=== PATIENT | male | born 1960 | race Caucasian/White ===

== ENCOUNTER 2018-04-01 10:45 | Emergency (ER) | payer BC ==
--- NOTE | 2018-04-01 10:51 | EDM.PDOC ---
ED HPI GENERAL MEDICAL PROBLEM - General Chief Complaint: Abdominal Pain Stated Complaint: Abdominal Pain Time Seen by Provider: 04/01/18 10:45 Source of Information: Reports: Patient, Family (), Old Records ([facility] chart/EMR) History Limitations: Reports: No Limitations - History of Present Illness INITIAL COMMENTS - FREE TEXT/NARRATIVE: The patient drove himself to the emergency room via private automobile for evaluation of a three-week history of progressive intermittent pain in the epigastric region with radiation into the intrascapular region. He has been compliant with his Prilosec with increased Tums use during the last couple of weeks, although this has not been helping in the last few days. He has noticed some increased symptoms after eating peanuts, however no previous history of diverticulosis. He rates his discomfort at 7/10 currently with previous maximum discomfort as 9/10. The patient denies any chest pain/pressure, heart flutter, dizziness, orthostasis, orthopnea, diaphoresis, paresthesias, recent decreased exercise tolerance, or any other anginal-type symptoms. No recent history of other abdominal pain, diarrhea, melena, gross hematochezia, or any food intolerance, including fatty foods, etc., although occasional nausea. He generally has 2 normal bowel movements per day with last bowel movement earlier this morning. He denies any colic, gross hematuria, or other UTI symptoms. His stools have been somewhat whitish lately. The patient also denies any recent fever, cough, wheezing, dyspnea, etc.. Note that the patient does take 600 mg of ibuprofen at bedtime every evening secondary to nonspecific muscle aches. Onset: Gradual Duration: Week(s): (As above), Intermittent Location: Reports: Abdomen, Back (As above), Radiates to (Intrascapular as above ). Denies: Head, Face, Neck, Chest, Upper Extremity, Left, Upper Extremity, Right Quality: Reports: Ache, Same as Previous Episode Improves with: Reports: None Worsens with: Reports: None Context: Reports: Other (As above) Associated Symptoms: Reports: Nausea/Vomiting (No emesis). 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) Upper Abdomen Pain Score (Numeric/FACES): 7 - Related Data Allergies Allergy/AdvReac Type Severity Reaction Status Date / Time No Known Allergies Allergy Verified 10/25/15 10:10 Home Meds: Home Meds Omeprazole Magnesium [Prilosec Otc] 20 mg PO DAILY 10/26/13 [History] Valsartan [Diovan] 160 mg PO DAILY 10/26/13 [History] atorvaSTATin Calcium [Atorvastatin Calcium] 10 mg PO DAILY 10/26/13 [History] Ascorbate Calcium [Vitamin C] 500 mg PO DAILY 04/01/18 [History] Cholecalciferol (Vitamin D3) [Vitamin D3] 1,000 unit PO DAILY 04/01/18 [History] Fish Oil/[place]-3 Fatty Acids [Fish Oil] 1 cap PO DAILY 04/01/18 [History] Melatonin 5 mg PO BEDTIME 04/01/18 [History] Multivitamin [Men's Multi-Vitamin] 1 tab PO DAILY 04/01/18 [History] Mv-Mn/Lutein/Zeax/Bilber/Hb277 [Macular Health Formula Capsule] 1 each PO DAILY 04/01/18 [History] Past Medical History HEENT History: Reports: Hard of Hearing, Macular Degeneration, Other (See Below) . Denies: Allergic Rhinitis, Cataract, Glaucoma, Impaired Vision, Retinal Detachment Other HEENT History: Possible beginning macular degeneration of the right eye. He does not wear glasses. Mild bilateral presbycusis with no hearing aide therapy. Cardiovascular History: Reports: High Cholesterol, Hypertension, Other (See Below). Denies: Afib, Aneurysm, Arrhythmia, Blood Clots/VTE/DVT, CAD, Heart Failure, Heart Murmur, SC, Syncope Other Cardiovascular History: Dyslipidemia. Respiratory History: Reports: None. Denies: Asthma, Bronchitis, Recurrent, COPD , Intubation, Previous, PE, Pneumonia, Recurrent, Pneumothorax, Sleep Apnea, TB Gastrointestinal History: Reports: Cholelithiasis, Colon Polyp, GERD, Other ( See Below). Denies: Celiac Disease, Chronic Constipation, Chronic Diarrhea, Gastritis, GI Bleed, Hepatitis, Helicobacter Pylori, Hiatal Hernia, Inflammatory Bowel Disease, Irritable Bowel Syndrome, Jaundice, Pancreatitis Other Gastrointestinal History: History of recurrent multiple colonic polyps in the sigmoid region including multiple hyperplastic colonic polyps and tubular adenomas with initial diagnosis on 10/31/13. Patient did have a recurrence of his tubular adenoma at 40 cm at time of colonoscopy on 10/25/15 with additional hyperplastic polyps at that time. Gangrenous cholelithiasis cholecystitis requiring surgery as below. Genitourinary History: Reports: None. Denies: Acute Renal Failure, Chronic Renal Insuffiency, Renal Calculus, Retention, Urinary, STD, Urinary Incontinence , UTI, Recurrent Musculoskeletal History: Reports: Arthritis, Osteoarthritis, Other (See Below). Denies: Back Pain, Chronic, Fracture, Gout, Neck Pain, Chronic, RA, SLE Other Musculoskeletal History: Nonspecific myalgias secondary to labor and physical activity Neurological History: Reports: None. Denies: Cerebral Aneurysms, Concussion, CVA, Headaches, Chronic, Head Trauma, Migraines, MS, Neuropathy, Peripheral, Parkinson's, Seizure, TIA Psychiatric History: Reports: None. Denies: Abuse, Victim of, ADD, ADHD, Addiction, Anxiety, Depression, Psych Hospitalization(s), PTSD, Suicide Attempt , Suicidal Ideation Endocrine/Metabolic History: Reports: None. Denies: Diabetes, Type I, Diabetes , Type II, Diabetes Mellitus, Type 3c, Hypothyroidism, IDDM Hematologic History: Reports: None. Denies: Anemia, Blood Transfusion(s), Iron Deficiency Immunologic History: Reports: None. Denies: AIDS, HIV, SLE Oncologic (Cancer) History: Reports: None. Denies: Colon, Hodgkin's Lymphoma, Leukemia, Lymphoma, Malignant Melanoma, Non-Hodgkin's Lymphoma, Squamous Cell Carcinoma Dermatologic History: Reports: None. Denies: Eczema, Psoriasis - Infectious Disease History Infectious Disease History: Reports: Chicken Pox. Denies: C-Difficile, Helicobacter Pylori, Measles, Meningitis, Mononucleosis, MRSA, Mumps, Pertussis (Whooping Cough), Rheumatic Fever, Rubella, Scarlet Fever, Shingles, TB, VRE - Past Surgical History Head Surgeries/Procedures: Reports: None HEENT Surgical History: Reports: Oral Surgery, Other (See Below). Denies: Adenoidectomy, Cataract Surgery, Eye Surgery, Laser Surgery, LASIK, Naso-Sinus Surgery, Tonsillectomy Other HEENT Surgeries/Procedures: Jeffrey teeth extraction 4 at age 22. Cardiovascular Surgical History: Reports: None. Denies: Varicose Respiratory Surgical History: Reports: None. Denies: Lung Biopsies, Thoracentesis GI Surgical History: Reports: Cholecystectomy, Colonoscopy, EGD, Polypectomy, Other (See Below). Denies: Appendectomy, Hernia, Abdominal, Hernia, Inguinal, Hernia Repair/Other Other GI Surgeries/Procedures: Laparoscopic cholecystectomy on 03/02/08. Excision of multiple hyperplastic colonic polyps and tubular adenomas as above with EGD and colonoscopy performed on 10/31/13 with last colonoscopy on 10/25/15. Male Surgical History: Reports: Circumcision, Other (See Below). Denies: TURP-Transurethral Resection of Prostate, Vasectomy Other Male Surgeries/Procedures: Vasectomy at age 34. Circumcision as an infant. Endocrine Surgical History: Reports: None. Denies: Thyroid Biopsy Neurological Surgical History: Reports: None. Denies: C-Spine, Discectomy, Laminectomy, Lumbar Spine, Sacral Spine, Spinal Fusion, Vertebroplasty Musculoskeletal Surgical History: Reports: None. Denies: Arthroscopic Procedure , Carpal Tunnel, Ganglion Cyst, Joint Replacement, ORIF, Shoulder Surgery Oncologic Surgical History: Reports: None Dermatological Surgical History: Reports: None - Past Imaging History Past Imaging History: Reports: Ultrasound (Testicular ultrasound on 05/30/11. Right upper quadrant ultrasound on 03/01/08. Abdominal ultrasound on 02/28/08.) Social & Family History - Family History HEENT: Reports: None. Denies: Glaucoma, Macular Degeneration, Retinal Detachment Cardiac: Reports: Afib, Arrhythmia, CAD, Hypertension, SC, Pacemaker, Other ( See Below). Denies: Aneurysm, Blood Clots/VTE/DVT, Bypass, Heart Failure, Heart Murmur, High Cholesterol, Syncope Other Cardiac Family History: Father with history of atrial fibrillation and arrhythmia requiring pacemaker placement. Father with hypertension. Father with history of DVT of the legs. Respiratory: Reports: None. Denies: Asthma, COPD, PE, Pneumothorax, Sleep Apnea GI: Reports: Colon Polyps, PUD, Other (See Below). Denies: Celiac Disease, Cholelithiasis, GERD, GI bleed, Inflammatory Bowel Disease, Irritable Bowel Syndrome Other GI Family History: Paternal grandfather with colon cancer as below. Sister with unknown type of colonic polyps. Father with peptic ulcer disease. : Reports: Dialysis, Renal Disease/Insufficiency, Other (See Below). Denies: Renal Calculus Other Family History: Paternal grandmother with diabetic nephropathy requiring dialysis. OBGYN: Reports: None. Denies: Endometriosis, Recurrent Spontaneous Musculoskeletal: Reports: None. Denies: Gout, RA, SLE Neurological: Reports: None. Denies: Alzheimers Disease, Cerebral Aneurysms, CVA, Dementia, Migraines, MS, Neuropathy, Diabetic, Neuropathy, Peripheral, Parkinson's, Seizure, TIA Psychiatric: Reports: None. Denies: Abuse, Victim of, ADD, ADHD, Anxiety, Depression, Psych Hospitalization(s), PTSD, Suicide Attempt Endocrine/Metabolic: Reports: Diabetes, type II, Other (See Below). Denies: Diabetes, Type I, Hypothyroidism, IDDM Other Endocrine/Metabolic Family History: Paternal grandmother with AODM Hematologic: Reports: None. Denies: Anemia, SLE Immunologic: Reports: None. Denies: AIDS, HIV, SLE Dermatologic: Reports: None. Denies: Eczema, Psoriasis Oncologic: Reports: Colon, Other (See Below). Denies: Hodgkin's Lymphoma, Leukemia, Non-Hodgkin's Lymphoma, Prostate, Skin Other Oncologic Family History: Paternal grandfather with fatal colon cancer at age 60. - Tobacco Use Smoking Status *Q: Current Every Day Smoker Tobacco Use Within Last Twelve Months: Cigarettes Years of Tobacco use: 38 Packs/Tins Daily: 1.5 Packs/Tins Daily Comment: Started smoking at age 19 with maximum use of 2.5 packs per day. Used Tobacco, but Quit: No Smoking Cessation Information Provided To Patient: Yes Second Hand Smoke Exposure: No Second Hand Smoke Education Provided: No - Caffeine Use Caffeine Use: Reports: Soda (3 sodas per day). Denies: Coffee, Energy Drinks, Tea - Alcohol Use Alcohol Use History: Yes Days Per Week of Alcohol Use: 0 Number of Drinks Per Day: 3 Number of Drinks Per Day Comment: Usually 3 drinks every couple of weeks. No previous DWIs, problems with alcohol abuse, etc. Total Drinks Per Week: 0 Alcohol Use in Last Twelve Months: Yes Alcohol Use Frequency: Socially - Recreational Drug Use Recreational Drug Use: No Drug Use in Last 12 Months: No Recreational Drug Type: Denies: Amphetamines (Speed), Cocaine, Heroin, Inhalants (Glues, Solvents, Aerosols), LSD (Acid), Marijuana/Hashish, Methamphetamine, Methaqualone, Morphine, Oxycodone - Living Situation & Occupation Living situation: Reports: (2014), (2010 with 2 children from that relationship), with Family () Occupation: Employed ([employer]) ED ROS GENERAL - Review of Systems Review Of Systems: ROS reveals no pertinent complaints other than HPI. ED EXAM, GENERAL - Physical Exam Exam: See Below Exam Limited By: No Limitations General Appearance: Alert, WD/WN, No Apparent Distress Eye Exam: Bilateral Eye: EOMI, Normal Inspection (No nystagmus), PERRL Ears: Normal External Exam, Normal Canal, Normal TMs, Hearing Loss (Bilateral presbycusismild) Nose: Normal Inspection, Normal Mucosa, No Blood Throat/Mouth: Normal Inspection, Normal Lips, Normal Teeth, Normal Gums, Normal Oropharynx, Normal Voice, No Airway Compromise. No: Dysphagia, Perioral Cyanosis Head: Atraumatic, Normocephalic. No: Facial Swelling, Facial Tenderness, Sinus Tenderness Neck: Normal Inspection, Supple, Non-Tender, Full Range of Motion. No: Carotid Bruit, Lymphadenopathy (L), Lymphadenopathy (R), Thyromegaly Respiratory/Chest: No Respiratory Distress, Lungs Clear, Normal Breath Sounds, No Accessory Muscle Use, Chest Non-Tender. No: Rhonchi, Wheezing, Pleural Rub, Retractions Cardiovascular: Normal Peripheral Pulses, Regular Rate, Rhythm, No Edema, No Gallop, No JVD, No Murmur, No Rub. No: Gallop/S3, Gallop/S4, Friction Rub Peripheral Pulses: 2+: Radial (L), Radial (R), Dorsalis Pedis (L), Dorsalis Pedis (R) GI/Abdominal: Normal Bowel Sounds, No Organomegaly, No Distention, No Abnormal Bruit, No Mass, Pelvis Stable, Tender (Mild Palpation pain in the epigastric region). No: Guarding, Rigid, Rebound (Male) Exam: Deferred Rectal (Males) Exam: Deferred Back Exam: Normal Inspection, Full Range of Motion. No: CVA Tenderness (L), CVA Tenderness (R), Muscle Spasm Extremities: Normal Inspection, Normal Range of Motion, Non-Tender, No Pedal Edema, Normal Capillary Refill. No: Tahir's Sign Neurological: Alert, Oriented, CN II-XII Intact, Normal Cognition, Normal Gait, Normal Reflexes (Negative Babinski's), No Motor/Sensory Deficits Psychiatric: Normal Affect, Normal Mood Skin Exam: Warm, Dry, Intact, Normal Color, No Rash. No: Diaphoretic, Ecchymosis, Jaundice, Pallor, Petechiae, Wound/Incision Lymphatic: No Adenopathy EKG INTERPRETATION EKG Date: 04/01/18 Time: 10:56 Rhythm: NSR Rate (Beats/Min): 69 Ola: Normal (Left cardiac axis) P-Wave: Present (Mild diffuse biphasic P waves with poor R-wave progression in the anterior leads) QRS: Normal (QRS interval of 0.09 seconds representing repolarization changes with T-wave inversion in leads 3 and V1) ST-T: Normal QT: Normal IA/PQ Interval: 0.17 seconds Comparison: No Change (Since last EKG on 11/21/09) EKG Interpretation Comments: 1. No acute ischemic changes 2. Left Atrial enlargement 3. Repolarization changes Course - Vital Signs Last Recorded V/S: Last Vital Signs Temp 37.0 C 04/01/18 10:45 Pulse 59 L 04/01/18 13:20 Resp 17 04/01/18 13:20 BP 122/81 04/01/18 13:20 Pulse Ox 94 L 04/01/18 13:00 Vital Signs - 24 hr 04/01/18 04/01/18 04/01/18 10:45 11:00 11:20 Temperature [ 37.0 C Temporal] Pulse, 73 67 65 Peripheral [ Pulse Oximetry] Respiratory 19 19 16 Rate Blood Pressure 136/83 122/81 138/89 [Right Upper Arm] O2 Sat by Pulse 98 98 96 Oximetry 04/01/18 04/01/18 04/01/18 11:30 11:45 12:30 Temperature [ Temporal] Pulse, 62 66 58 L Peripheral [ Pulse Oximetry] Respiratory 20 18 17 Rate Blood Pressure 103/70 123/79 129/82 [Right Upper Arm] O2 Sat by Pulse 97 99 98 Oximetry 04/01/18 04/01/18 04/01/18 12:45 13:00 13:20 Temperature [ Temporal] Pulse, 59 L 58 L 59 L Peripheral [ Pulse Oximetry] Respiratory 19 16 17 Rate Blood Pressure 120/79 132/81 122/81 [Right Upper Arm] O2 Sat by Pulse 93 L 94 L Oximetry - Orders/Labs/Meds Orders: Active Orders 24 hr Category Date Time Status Cardiac Monitoring [RC] . DIRECTED Care 04/01/18 10:52 Active Communication Order [RC] ROUTINE Care 04/01/18 13:27 Active EKG Documentation Completion [RC] ASDIRECTED Care 04/01/18 10:52 Active Oxygen Therapy, ED [RC] PRN Care 04/01/18 10:52 Active Peripheral IV Care [RC] . DIRECTED Care 04/01/18 10:52 Active Pulse Oximetry [RC] CONTINUOUS Care 04/01/18 10:52 Active Up With Assistance [RC] PFP Care 04/01/18 10:52 Active Vital Signs [RC] PFP Care 04/01/18 10:52 Active Nothing per Oral Now Diet [DIET] Diet 04/01/18 Breakfast Active Abdomen Pelvis w Cont [CT] Stat Exams 04/01/18 11:37 Taken Abdomen Series w Chest 1V [CR] Routine Exams 04/01/18 10:54 Taken CULTURE URINE [RM] Routine Lab 04/01/18 12:05 Received URINALYSIS W/MICROSCOPIC [UA W/MICROSCOPIC] [URIN] Lab 04/01/18 12:05 Ordered Routine Sodium Chloride 0.9% [Saline Flush] Med 04/01/18 10:52 Active 10 ml FLUSH ASDIRECTED PRN Obtain Past Medical Record [OM.PC] Urgent Oth 04/01/18 10:52 Active Peripheral IV Insertion Adult [OM.PC] Stat Oth 04/01/18 10:52 Ordered Resuscitation Status Stat Resus Stat 04/01/18 10:52 Ordered Medication Orders Sodium Chloride (Saline Flush) 10 ml FLUSH ASDIRECTED PRN PRN Reason: Keep Vein Open Last Admin: 04/01/18 11:40 Dose: 10 ml Labs: Laboratory Tests 04/01/18 04/01/18 04/01/18 Range/Units 10:55 10:55 10:55 WBC 11.3 H (4.0-10.2) K/uL RBC 5.29 (4.33-5.41) M/uL Hgb 16.9 H (13.1-16.8) g/dL Hct 48.9 (39.0-49.0) % MCV 92.4 (84.0-98.0) fL MCH 31.9 (28.2-33.3) pg MCHC 34.6 (31.7-36.0) g/dL RDW 13.7 (11.2-14.1) % Plt Count 198 (150-350) K/uL Neut % (Auto) 67.2 (45.0-80.0) % Lymph % (Auto) 22.2 (10.0-50.0) % [place] % (Auto) 8.6 (2.0-14.0) % Eos % (Auto) 1.6 (0.0-5.0) % Baso % (Auto) 0.4 (0.0-2.0) % Neut # (Auto) 7.62 H (1.40-7.00) K/uL Lymph # (Auto) 2.51 (0.50-3.50) K/uL [place] # (Auto) 0.98 (0.00-1.00) K/uL Eos # (Auto) 0.18 (0.00-0.50) K/uL Baso # (Auto) 0.04 (0.00-0.20) K/uL PT 10.3 (9.8-11.7) SEC INR 1.0 APTT 31.2 H (22.1-29.8) SEC D-Dimer, Quantitative 319 (0-400) ng/mL Sodium (136-145) mmol/L Potassium (3.5-5.1) mmol/L Chloride (98-107) mmol/L Carbon Dioxide (21.0-32.0) mmol/L BUN (7-18) mg/dL Creatinine (0.51-1.17) mg/dL Est Cr Clr Drug Dosing mL/min Estimated GFR (MDRD) mL/min Glucose (74-106) mg/dL Lactic Acid (0.4-2.0) mmol/L Uric Acid (2.6-7.2) mg/dL Calcium (8.5-10.1) mg/dL Magnesium (1.8-2.4) mg/dL Total Bilirubin (0.2-1.0) mg/dL AST (15-37) U/L ALT (12-78) U/L Alkaline Phosphatase (46-116) IU/L Creatine Kinase (26-308) U/L Creatine Kinase Index (0.0-2.5) % CK-MB (CK-2) (0.00-3.60) ng/mL Troponin I (0.000-0.056) ng/mL NT-Pro-B Natriuret Pep (0-125) pg/mL Total Protein (6.4-8.2) g/dL Albumin (3.4-5.0) g/dL Amylase (25-115) U/L Lipase (73-393) U/L TSH, Ultra Sensitive (0.358-3.740) mIU/mL Specimen Type Urine Color Urine Appearance Urine pH (5.0-9.0) Ur Specific Glen (1.005-1.030) Urine Protein (NEGATIVE) mg/dL Urine Glucose (UA) (NEGATIVE) mg/dL Urine Ketones (NEGATIVE) mg/dL Urine Occult Blood (NEGATIVE) Urine Nitrite (NEGATIVE) Urine Bilirubin (NEGATIVE) Urine Urobilinogen (0.2-1.0) E.U./dL Ur Leukocyte Esterase (NEGATIVE) Urine RBC /HPF Urine WBC /HPF Ur Epithelial Cells /LPF Urine Bacteria (NONE TO FEW) /HPF 04/01/18 04/01/18 04/01/18 Range/Units 10:55 10:55 12:05 WBC (4.0-10.2) K/uL RBC (4.33-5.41) M/uL Hgb (13.1-16.8) g/dL Hct (39.0-49.0) % MCV (84.0-98.0) fL MCH (28.2-33.3) pg MCHC (31.7-36.0) g/dL RDW (11.2-14.1) % Plt Count (150-350) K/uL Neut % (Auto) (45.0-80.0) % Lymph % (Auto) (10.0-50.0) % [place] % (Auto) (2.0-14.0) % Eos % (Auto) (0.0-5.0) % Baso % (Auto) (0.0-2.0) % Neut # (Auto) (1.40-7.00) K/uL Lymph # (Auto) (0.50-3.50) K/uL [place] # (Auto) (0.00-1.00) K/uL Eos # (Auto) (0.00-0.50) K/uL Baso # (Auto) (0.00-0.20) K/uL PT (9.8-11.7) SEC INR APTT (22.1-29.8) SEC D-Dimer, Quantitative (0-400) ng/mL Sodium 138 (136-145) mmol/L Potassium 4.2 (3.5-5.1) mmol/L Chloride 106 (98-107) mmol/L Carbon Dioxide 21.9 (21.0-32.0) mmol/L BUN 13 (7-18) mg/dL Creatinine 0.92 (0.51-1.17) mg/dL Est Cr Clr Drug Dosing 96.06 mL/min Estimated GFR (MDRD) > 60 mL/min Glucose 97 (74-106) mg/dL Lactic Acid 0.6 (0.4-2.0) mmol/L Uric Acid 4.6 (2.6-7.2) mg/dL Calcium 8.9 (8.5-10.1) mg/dL Magnesium 1.9 (1.8-2.4) mg/dL Total Bilirubin 1.1 H (0.2-1.0) mg/dL AST 210 H (15-37) U/L ALT 398 H (12-78) U/L Alkaline Phosphatase 382 H (46-116) IU/L Creatine Kinase 327 H (26-308) U/L Creatine Kinase Index 1.3 (0.0-2.5) % CK-MB (CK-2) 4.30 H (0.00-3.60) ng/mL Troponin I 0.000 (0.000-0.056) ng/mL NT-Pro-B Natriuret Pep 20 (0-125) pg/mL Total Protein 7.7 (6.4-8.2) g/dL Albumin 3.6 (3.4-5.0) g/dL Amylase 341 H (25-115) U/L Lipase 3147 H (73-393) U/L TSH, Ultra Sensitive 1.317 (0.358-3.740) mIU/mL Specimen Type Urincc Urine Color Yellow Urine Appearance Clear Urine pH 6.5 (5.0-9.0) Ur Specific Glen 1.010 (1.005-1.030) Urine Protein Negative (NEGATIVE) mg/dL Urine Glucose (UA) Negative (NEGATIVE) mg/dL Urine Ketones Negative (NEGATIVE) mg/dL Urine Occult Blood Negative (NEGATIVE) Urine Nitrite Negative (NEGATIVE) Urine Bilirubin Negative (NEGATIVE) Urine Urobilinogen 1.0 (0.2-1.0) E.U./dL Ur Leukocyte Esterase Trace H (NEGATIVE) Urine RBC 0-5 /HPF Urine WBC 5-10 H /HPF Ur Epithelial Cells Few /LPF Urine Bacteria Few (NONE TO FEW) /HPF Urine specimen set up for culture and sensitivity. Meds: Medications Generic Name Dose Route Start Last Admin Trade Name Freq PRN Reason Stop Dose Admin Sodium Chloride 10 ml 04/01/18 10:52 04/01/18 11:40 Saline Flush FLUSH 10 ml ASDIRECTED PRN Administration Keep Vein Open Discontinued Medications Generic Name Dose Route Start Last Admin Trade Name Freq PRN Reason Stop Dose Admin Al Hydroxide/Mg Hydroxide 30 ml 04/01/18 11:31 04/01/18 11:36 Gi Cocktail PO 04/01/18 11:32 30 ml ONETIME ONE Administration Famotidine 40 mg 04/01/18 10:52 04/01/18 11:02 Pepcid IVPUSH 04/01/18 10:53 40 mg ONETIME ONE Administration Lactated Ringer's 1,000 mls @ 999 mls/hr 04/01/18 11:37 04/01/18 11:42 Ringers, Lactated IV 04/01/18 12:37 999 mls/hr .BOLUS ONE Administration Iopamidol 100 ml 04/01/18 11:50 04/01/18 12:18 Isovue-300 (61%) IVPUSH 04/01/18 11:51 100 ml ONETIME ONE Administration Pantoprazole Sodium 40 mg 04/01/18 11:31 04/01/18 11:36 Protonix Iv IVPUSH 04/01/18 11:32 40 mg ONETIME ONE Administration - Radiology Interpretation Free Text/Narrative:: security monitor shows normal sinus rhythm with heart rate in the 60s with very occasional bradycardia in the high 50s with no ectopy or arrhythmia Acute abdominal x-rays shows evidence of status post cholecystectomy with mild pulmonary obstructive disease, prominence of the proximal aortic arch, and aortic valve calcification. No CHF, cardiomegaly, pulmonary infiltrates, or pneumothorax. Mild osteoarthritic changes and scoliosis with additional moderate diffuse stool with no fluid levels, free air, evidence of ileus/ obstruction or intra-abdominal calcifications. Telephone consultation at 13:05 hours with the radiology department at [facility] with verbal report of CT of the abdomen and pelvis with IV contrast. Significant narrowing and stenosis of the distal common bile duct with some hepatic biliary dilatation however no stone, masses, etc. with status post cholecystectomy. No Evidence of pseudocyst, pancreatic abscess, or significant pancreatic stranding CT Results Date: 04/01/18 CT Results Time: 13:05 Departure - Departure Time of Disposition: 14:00 Disposition: DC/Tfer to [facility] 02 Condition: Good Clinical Impression: Peptic reflux disease, Tobacco abuse counseling, Elevated LFTs, Elevated CK-MB level Abdominal pain Qualifiers: Abdominal location: epigastric Qualified Code(s): R10.13 - Epigastric pain Hypertension Qualifiers: Hypertension type: essential hypertension Qualified Code(s): I10 - Essential ( primary) hypertension Hyperlipidemia Qualifiers: Hyperlipidemia type: mixed hyperlipidemia Qualified Code(s): E78.2 - Mixed hyperlipidemia Osteoarthritis Qualifiers: Osteoarthritis location: multiple joints Osteoarthritis type: primary Qualified Code(s): M15.0 - Primary generalized (osteo)arthritis Pancreatitis Qualifiers: Chronicity: acute Pancreatitis type: unspecified pancreatitis type Acute pancreatitis complication: unspecified Qualified Code(s): K85.90 - Acute pancreatitis without necrosis or infection, unspecified - Discharge Information *PRESCRIPTION DRUG MONITORING PROGRAM REVIEWED*: Not Applicable *COPY OF PRESCRIPTION DRUG MONITORING REPORT IN PATIENT IMANI: Not Applicable Referrals: Mimi Aldana [facility] [Primary Care Provider] - Forms: ED Department Discharge, Interfacility Transfer JUDE Additional Instructions: 1. Private automobile transfer for direct admission to [facility]. 2. Strict nothing to eat or drink until otherwise directed by [facility] physicians 3. Stop all tobacco use TRAVON as directed/per provided information and consider contacting Quit LIne, etc.. - Problem List & Annotations (1) Pancreatitis SNOMED Code(s): 96066043 Code(s): K85.90 - ACUTE PANCREATITIS WITHOUT NECROSIS OR INFECTION, UNSP Status: Acute Priority: High Current Visit: Yes Onset Date: ~04/01/18 Annotation/Comment:: CT scan results as above. Initial telephone consultation with [facility] at 13:00 hours with subsequent consultation 13: [address] Trinidad, GI, who agrees with current treatment and treatment plan, however he is requesting the patient be admitted through their hospitalist. Subsequent telephone consultation at 13:[address] Trinidad, hospitalist, who agrees to direct admission with no other treatment recommendations given. Planned MRCP later today with possible future ERCP. Patient will be kept nothing by mouth during transfer with last oral intake at about 08:30 a.m. this morning. Aggressive treatment in the emergency room, including high-dose IV Pepcid and IV Protonix. Patient's pain did improve to 2/ 10 at time of transfer. 1 L of IV lactated Ringer's given in the emergency room. Consider NG tube therapy depending on his clinical course. Qualifiers: Chronicity: acute Pancreatitis type: unspecified pancreatitis type Acute pancreatitis complication: unspecified Qualified Code(s): K85.90 - Acute pancreatitis without necrosis or infection, unspecified (2) Abdominal pain SNOMED Code(s): 16537604 Code(s): R10.9 - UNSPECIFIED ABDOMINAL PAIN Status: Acute Priority: High Current Visit: Yes Annotation/Comment:: Secondary to pancreatitis as above. Note previous history of recurrent colonic polyps as above. Further GI workup depending on his clinical course as above. Patient advised not to take ibuprofen at that time with latest dose with food at supper. Qualifiers: Abdominal location: epigastric Qualified Code(s): R10.13 - Epigastric pain (3) Elevated CK-MB level SNOMED Code(s): 387192081 Code(s): R74.8 - ABNORMAL LEVELS OF OTHER SERUM ENZYMES Status: Acute Priority: High Current Visit: Yes Onset Date: 04/01/18 Annotation/Comment: : History of nonspecific myositis possibly secondary his statin therapy. Consider coenzyme Q 10 therapy. Troponin I is normal with no direct evidence of true chest pain or anginal complaints. Chest pain protocol was not initiated in the emergency room. Serial cardiac enzymes and repeat EKG in the a.m. are recommended. Patient now states that he may have had some possible decreased exercise tolerance during the last several months. Consider Cardiolite stress test on an outpatient basis. (4) Elevated LFTs SNOMED Code(s): 366992380, 501305541 Code(s): R94.5 - ABNORMAL RESULTS OF LIVER FUNCTION STUDIES Status: Acute Priority: Medium Current Visit: Yes Annotation/Comment:: Moderately elevated LFTs. Continue to observe closely with repeat blood work in the a.m. (5) Hyperlipidemia SNOMED Code(s): 97347155 Code(s): E78.5 - HYPERLIPIDEMIA, UNSPECIFIED Status: Chronic Priority: Medium Current Visit: Yes Annotation/Comment:: History of dyslipidemia. Consider hyperlipidemia as possible concomitant etiology for his current pancreatitis and LFTs elevation. Lipid panel recommended to be conducted in the a.m. with consideration of holding statin therapy for now. Qualifiers: Hyperlipidemia type: mixed hyperlipidemia Qualified Code(s): E78.2 - Mixed hyperlipidemia (6) Hypertension SNOMED Code(s): 47714583 Code(s): I10 - ESSENTIAL (PRIMARY) HYPERTENSION Status: Chronic Priority : Medium Current Visit: Yes Annotation/Comment:: Blood Pressures under good control in the emergency room. Qualifiers: Hypertension type: essential hypertension Qualified Code(s): I10 - Essential (primary) hypertension (7) Osteoarthritis SNOMED Code(s): 509040939 Code(s): M19.90 - UNSPECIFIED OSTEOARTHRITIS, UNSPECIFIED SITE Status: Chronic Priority: Medium Current Visit: Yes Annotation/Comment:: Stable by history Qualifiers: Osteoarthritis location: multiple joints Osteoarthritis type: primary Qualified Code(s): M15.0 - Primary generalized (osteo)arthritis (8) Peptic reflux disease SNOMED Code(s): 289414463 Code(s): K21.9 - GASTRO-ESOPHAGEAL REFLUX DISEASE WITHOUT ESOPHAGITIS Status: Chronic Priority: High Current Visit: Yes Annotation/Comment:: Therapy as above. Patient has been compliant with his Prilosec, however note nocturnal high-dose NSAID use as above. (9) Tobacco abuse counseling SNOMED Code(s): 971126138, 525462290, 098597027 Code(s): Z71.6 - TOBACCO ABUSE COUNSELING Status: Chronic Priority: Medium Current Visit: Yes Annotation/Comment:: Tobacco cessation strongly encouraged with information to be provided at discharge. Probable COPD by today' s chest x-ray with consideration of PFTs on an outpatient basis. - Problem List Review Problem List Initiated/Reviewed/Updated: Yes - My Orders Last 24 Hours: My Active Orders 04/01/18 10:52 Cardiac Monitoring [RC] . DIRECTED EKG Documentation Completion [RC] ASDIRECTED Oxygen Therapy, ED [RC] PRN Peripheral IV Care [RC] . DIRECTED Pulse Oximetry [RC] CONTINUOUS Up With Assistance [RC] PFP Vital Signs [RC] PFP Sodium Chloride 0.9% [Saline Flush] 10 ml FLUSH ASDIRECTED PRN Obtain Past Medical Record [OM.PC] Urgent Peripheral IV Insertion Adult [OM.PC] Stat Resuscitation Status Stat 04/01/18 10:54 Abdomen Series w Chest 1V [CR] Routine 04/01/18 11:37 Abdomen Pelvis w Cont [CT] Stat 04/01/18 12:05 CULTURE URINE [RM] Routine URINALYSIS W/MICROSCOPIC [UA W/MICROSCOPIC] [URIN] Routine 04/01/18 13:27 Communication Order [RC] ROUTINE 04/01/18 Breakfast Nothing per Oral Now Diet [DIET] - Assessment/Plan Last 24 Hours: My Active Orders 04/01/18 10:52 Cardiac Monitoring [RC] . DIRECTED EKG Documentation Completion [RC] ASDIRECTED Oxygen Therapy, ED [RC] PRN Peripheral IV Care [RC] . DIRECTED Pulse Oximetry [RC] CONTINUOUS Up With Assistance [RC] PFP Vital Signs [RC] PFP Sodium Chloride 0.9% [Saline Flush] 10 ml FLUSH ASDIRECTED PRN Obtain Past Medical Record [OM.PC] Urgent Peripheral IV Insertion Adult [OM.PC] Stat Resuscitation Status Stat 04/01/18 10:54 Abdomen Series w Chest 1V [CR] Routine 04/01/18 11:37 Abdomen Pelvis w Cont [CT] Stat 04/01/18 12:05 CULTURE URINE [RM] Routine URINALYSIS W/MICROSCOPIC [UA W/MICROSCOPIC] [URIN] Routine 04/01/18 13:27 Communication Order [RC] ROUTINE 04/01/18 Breakfast Nothing per Oral Now Diet [DIET] Assessment:: As above Plan: As above. Extensive precautions were given to the patient and his , who are in agreement with the treatment plan. See Patient Instructions for further treatment and plan. The patient will require about 3-4 days of inpatient/acute care secondary to multiple health problems as above. will drive him to [place] via private automobile for direct admission into [facility] in [place] for direct admission as above.
[2018-04-01] MEDS ORDERED: Famotidine 20 MG/2 ML SDV IVPUSH ONE (10:52)
[2018-04-01] MEDS ORDERED: Sodium Chloride 0.9% 10 ML Syringe FLUSH PRN (10:52)
[2018-04-01 11:31] LABS: CHLORIDE,CL 106 mmol/L (98-107); SODIUM,NA 138 mmol/L (136-145)
[2018-04-01] MEDS ORDERED: GI Cocktail Oral Solution 30 ML PO ONE (11:31)
[2018-04-01] MEDS ORDERED: Pantoprazole 40 MG Vial IVPUSH ONE (11:31)
[2018-04-01] MEDS ORDERED: Lactated Ringers 1,000 ML IV ONE (11:37)
[2018-04-01] MEDS ORDERED: Iopamidol 612 MG/ML 100 ML Bottle IVPUSH ONE (11:50)
[2018-04-01 13:38] VITALS: BP 122/81
== END 2018-04-01 14:00 ==
LOC: LL.ED 10:45
DX: K21.9 Gastro-esophageal reflux disease without esophagitis (principal); K85.90 Acute pancreatitis without necrosis or infection, unspecified; M15.0 Primary generalized (osteo)arthritis; R79.89 Other specified abnormal findings of blood chemistry; R74.8 Abnormal levels of other serum enzymes; E78.00 Pure hypercholesterolemia, unspecified; I10 Essential (primary) hypertension; F17.210 Nicotine dependence, cigarettes, uncomplicated; Z71.6 Tobacco abuse counseling; Z79.899 Other long term (current) drug therapy; Z90.49 Acquired absence of other specified parts of digestive tract
CPT/HCPCS: 36415; 74022; 74177; 80053; 81001; 82150; 82550; 82553; 83605; 83690; 83735; 83880; 84443; 84484; 84550; 85025; 85379; 85610; 85730; 87086; 93005; 96361; 96374; 96375; 99285; A9270-GY; C9113; J3490; J7050; J7120; Q9967

== ENCOUNTER 2018-06-11 01:53 | Observation (INO) | payer BC ==
[2018-06-11] MEDS ORDERED: Sodium Chloride 0.9% 1,000 ML IV ONE ×2 (02:21→03:26)
[2018-06-11] MEDS ORDERED: Promethazine 12.5 MG in Sodium Chloride 0.9% 100 ML IV ONE ×2 (02:21→02:25)
[2018-06-11] MEDS ORDERED: Ketorolac 30 MG/ML SDV IVPUSH ONE (02:21)
--- NOTE | 2018-06-11 02:31 | EDM.PDOC ---
ED HPI GENERAL MEDICAL PROBLEM - General Chief Complaint: General Stated Complaint: Nausea and vomitting Time Seen by Provider: 06/11/18 02:12 Source of Information: Reports: Patient, Family History Limitations: Reports: No Limitations - History of Present Illness INITIAL COMMENTS - FREE TEXT/NARRATIVE: Patient started his first round of chemo for pancreatic cancer yesterday. Started to develop nausea just prior to leaving [place]. Nausea and vomiting have persisted despite multiple doses of Zofran and Compazine, some of which patient was unable to keep down long before having further episodes of emesis. Headache has also developed. Treatment regimen started includes: 5FU, Oxaliplatin, Irinotecan No other reported changes. Abdomen Pain Score (Numeric/FACES): 2 - Related Data Allergies Allergy/AdvReac Type Severity Reaction Status Date / Time No Known Allergies Allergy Verified 10/25/15 10:10 Home Meds: Home Meds Omeprazole Magnesium [Prilosec Otc] 20 mg PO DAILY 10/26/13 [History] Melatonin 5 mg PO BEDTIME 04/01/18 [History] Multivitamin [Men's Multi-Vitamin] 1 tab PO DAILY 04/01/18 [History] Mv-Mn/Lutein/Zeax/Bilber/Hb277 [Macular Health Formula Capsule] 1 each PO DAILY 04/01/18 [History] Ondansetron HCl [Zofran] 4 mg PO PRN 06/11/18 [History] Prochlorperazine Maleate [Compazine] 10 mg PO PRN 06/11/18 [History] Past Medical History HEENT History: Reports: Hard of Hearing, Macular Degeneration, Other (See Below) . Denies: Allergic Rhinitis, Cataract, Glaucoma, Impaired Vision, Retinal Detachment Other HEENT History: Possible beginning macular degeneration of the right eye. He does not wear glasses. Mild bilateral presbycusis with no hearing aide therapy. Cardiovascular History: Reports: High Cholesterol, Hypertension, Other (See Below). Denies: Afib, Aneurysm, Arrhythmia, Blood Clots/VTE/DVT, CAD, Heart Failure, Heart Murmur, [place], Syncope Other Cardiovascular History: Dyslipidemia. Respiratory History: Reports: None. Denies: Asthma, Bronchitis, Recurrent, COPD , Intubation, Previous, PE, Pneumonia, Recurrent, Pneumothorax, Sleep Apnea, TB Gastrointestinal History: Reports: Cholelithiasis, Colon Polyp, GERD, Other ( See Below). Denies: Celiac Disease, Chronic Constipation, Chronic Diarrhea, Gastritis, GI Bleed, Hepatitis, Helicobacter Pylori, Hiatal Hernia, Inflammatory Bowel Disease, Irritable Bowel Syndrome, Jaundice, Pancreatitis Other Gastrointestinal History: History of recurrent multiple colonic polyps in the sigmoid region including multiple hyperplastic colonic polyps and tubular adenomas with initial diagnosis on 10/31/13. Patient did have a recurrence of his tubular adenoma at 40 cm at time of colonoscopy on 10/25/15 with additional hyperplastic polyps at that time. Gangrenous cholelithiasis cholecystitis requiring surgery as below. Genitourinary History: Reports: None. Denies: Acute Renal Failure, Chronic Renal Insuffiency, Renal Calculus, Retention, Urinary, STD, Urinary Incontinence , UTI, Recurrent Musculoskeletal History: Reports: Arthritis, Osteoarthritis, Other (See Below). Denies: Back Pain, Chronic, Fracture, Gout, Neck Pain, Chronic, RA, SLE Other Musculoskeletal History: Nonspecific myalgias secondary to labor and physical activity Neurological History: Reports: None. Denies: Cerebral Aneurysms, Concussion, CVA, Headaches, Chronic, Head Trauma, Migraines, MS, Neuropathy, Peripheral, Parkinson's, Seizure, TIA Psychiatric History: Reports: None. Denies: Abuse, Victim of, ADD, ADHD, Addiction, Anxiety, Depression, Psych Hospitalization(s), PTSD, Suicide Attempt , Suicidal Ideation Endocrine/Metabolic History: Reports: None. Denies: Diabetes, Type I, Diabetes , Type II, Diabetes Mellitus, Type 3c, Hypothyroidism, IDDM Hematologic History: Reports: None. Denies: Anemia, Blood Transfusion(s), Iron Deficiency Immunologic History: Reports: None. Denies: AIDS, HIV, SLE Oncologic (Cancer) History: Reports: None. Denies: Colon, Hodgkin's Lymphoma, Leukemia, Lymphoma, Malignant Melanoma, Non-Hodgkin's Lymphoma, Squamous Cell Carcinoma Dermatologic History: Reports: None. Denies: Eczema, Psoriasis - Infectious Disease History Infectious Disease History: Reports: Chicken Pox. Denies: C-Difficile, Helicobacter Pylori, Measles, Meningitis, Mononucleosis, MRSA, Mumps, Pertussis (Whooping Cough), Rheumatic Fever, Rubella, Scarlet Fever, Shingles, TB, VRE - Past Surgical History Head Surgeries/Procedures: Reports: None HEENT Surgical History: Reports: Oral Surgery, Other (See Below). Denies: Adenoidectomy, Cataract Surgery, Eye Surgery, Laser Surgery, LASIK, Naso-Sinus Surgery, Tonsillectomy Other HEENT Surgeries/Procedures: [place] teeth extraction 4 at age 22. Cardiovascular Surgical History: Reports: None. Denies: Varicose Respiratory Surgical History: Reports: None. Denies: Lung Biopsies, Thoracentesis GI Surgical History: Reports: Cholecystectomy, Colonoscopy, EGD, Polypectomy, Other (See Below). Denies: Appendectomy, Hernia, Abdominal, Hernia, Inguinal, Hernia Repair/Other Other GI Surgeries/Procedures: Laparoscopic cholecystectomy on 03/02/08. Excision of multiple hyperplastic colonic polyps and tubular adenomas as above with EGD and colonoscopy performed on 10/31/13 with last colonoscopy on 10/25/15. Male Surgical History: Reports: Circumcision, Other (See Below). Denies: TURP-Transurethral Resection of Prostate, Vasectomy Other Male Surgeries/Procedures: Vasectomy at age 34. Circumcision as an infant. Endocrine Surgical History: Reports: None. Denies: Thyroid Biopsy Neurological Surgical History: Reports: None. Denies: C-Spine, Discectomy, Laminectomy, Lumbar Spine, Sacral Spine, Spinal Fusion, Vertebroplasty Musculoskeletal Surgical History: Reports: None. Denies: Arthroscopic Procedure , Carpal Tunnel, Ganglion Cyst, Joint Replacement, ORIF, Shoulder Surgery Oncologic Surgical History: Reports: None Dermatological Surgical History: Reports: None - Past Imaging History Past Imaging History: Reports: Ultrasound (Testicular ultrasound on 05/30/11. Right upper quadrant ultrasound on 03/01/08. Abdominal ultrasound on 02/28/08.) Social & Family History - Family History HEENT: Reports: None. Denies: Glaucoma, Macular Degeneration, Retinal Detachment Cardiac: Reports: Afib, Arrhythmia, CAD, Hypertension, WA, Pacemaker, Other ( See Below). Denies: Aneurysm, Blood Clots/VTE/DVT, Bypass, Heart Failure, Heart Murmur, High Cholesterol, Syncope Other Cardiac Family History: Father with history of atrial fibrillation and arrhythmia requiring pacemaker placement. Father with hypertension. Father with history of DVT of the legs. Respiratory: Reports: None. Denies: Asthma, COPD, PE, Pneumothorax, Sleep Apnea GI: Reports: Colon Polyps, PUD, Other (See Below). Denies: Celiac Disease, Cholelithiasis, GERD, GI bleed, Inflammatory Bowel Disease, Irritable Bowel Syndrome Other GI Family History: Paternal grandfather with colon cancer as below. Sister with unknown type of colonic polyps. Father with peptic ulcer disease. : Reports: Dialysis, Renal Disease/Insufficiency, Other (See Below). Denies: Renal Calculus Other Family History: Paternal grandmother with diabetic nephropathy requiring dialysis. OBGYN: Reports: None. Denies: Endometriosis, Recurrent Spontaneous Musculoskeletal: Reports: None. Denies: Gout, RA, SLE Neurological: Reports: None. Denies: Alzheimers Disease, Cerebral Aneurysms, CVA, Dementia, Migraines, MS, Neuropathy, Diabetic, Neuropathy, Peripheral, Parkinson's, Seizure, TIA Psychiatric: Reports: None. Denies: Abuse, Victim of, ADD, ADHD, Anxiety, Depression, Psych Hospitalization(s), PTSD, Suicide Attempt Endocrine/Metabolic: Reports: Diabetes, type II, Other (See Below). Denies: Diabetes, Type I, Hypothyroidism, IDDM Other Endocrine/Metabolic Family History: Paternal grandmother with AODM Hematologic: Reports: None. Denies: Anemia, SLE Immunologic: Reports: None. Denies: AIDS, HIV, SLE Dermatologic: Reports: None. Denies: Eczema, Psoriasis Oncologic: Reports: Colon, Other (See Below). Denies: Hodgkin's Lymphoma, Leukemia, Non-Hodgkin's Lymphoma, Prostate, Skin Other Oncologic Family History: Paternal grandfather with fatal colon cancer at age 60. - Caffeine Use Caffeine Use: Reports: Soda (3 sodas per day). Denies: Coffee, Energy Drinks, Tea - Living Situation & Occupation Living situation: Reports: (2014), (2010 with 2 children from that relationship), with Family () Occupation: Employed ([employer]) ED ROS GENERAL - Review of Systems Review Of Systems: ROS reveals no pertinent complaints other than HPI. ED EXAM, GENERAL - Physical Exam Exam: See Below Exam Limited By: No Limitations General Appearance: Alert, WD/WN, Other (Uncomfortable, but no acute distress) Eye Exam: Bilateral Eye: EOMI, PERRL Ears: Normal External Exam Nose: No: Nasal Deformity, Nasal Swelling, Nasal Drainage Throat/Mouth: Normal Lips, Normal Voice, No Airway Compromise Head: Atraumatic, Normocephalic Neck: Supple Respiratory/Chest: No Respiratory Distress, Lungs Clear, Normal Breath Sounds, No Accessory Muscle Use, Chest Non-Tender Cardiovascular: Normal Peripheral Pulses, Regular Rate, Rhythm, No Edema, No Murmur Peripheral Pulses: 2+: Radial (L), Radial (R) GI/Abdominal: Normal Bowel Sounds, Soft, Tender (mild discomfort in abdomen with palpation all 4 quadrants). No: Guarding, Rigid, Rebound (Male) Exam: Deferred Rectal (Males) Exam: Deferred Extremities: Normal Inspection, Normal Range of Motion, Non-Tender, No Pedal Edema, Normal Capillary Refill Neurological: Alert, Oriented, Normal Cognition, No Motor/Sensory Deficits Psychiatric: Normal Affect, Normal Mood Skin Exam: Warm, Dry, Intact, Normal Color Course - Vital Signs Last Recorded V/S: Last Vital Signs Temp 36.7 C 06/11/18 01:55 Pulse 95 06/11/18 01:55 Resp 18 06/11/18 01:55 BP 145/84 H 06/11/18 01:55 Pulse Ox 92 L 06/11/18 01:55 - Orders/Labs/Meds Orders: Medication Orders Sodium Chloride (Normal Saline) 1,000 mls @ 500 mls/hr IV .BOLUS ONE Stop: 06/11/18 05:25 Sodium Chloride (Normal Saline) 1,000 mls @ 125 mls/hr IV ASDIRECTED MURTAZA Promethazine HCl 12.5 mg/ (Sodium Chloride) 100.5 mls @ 400 mls/hr IV Q6H PRN PRN Reason: Nausea Ketorolac Tromethamine (Toradol) 30 mg IVPUSH Q6H PRN PRN Reason: Pain Stop: 06/16/18 03:27 Promethazine HCl (Phenergan) 25 mg PO Q4H PRN PRN Reason: Nausea/Vomiting Meds: Medications Generic Name Dose Route Start Last Admin Trade Name Freq PRN Reason Stop Dose Admin Sodium Chloride 1,000 mls @ 500 mls/hr 06/11/18 03:26 Normal Saline IV 06/11/18 05:25 .BOLUS ONE Sodium Chloride 1,000 mls @ 125 mls/hr 06/11/18 06:00 Normal Saline IV ASDIRECTED MURTAZA Promethazine HCl 12.5 mg/ 100.5 mls @ 400 mls/hr 06/11/18 03:31 Sodium Chloride IV Q6H PRN Nausea Ketorolac Tromethamine 30 mg 06/11/18 03:27 Toradol IVPUSH 06/16/18 03:27 Q6H PRN Pain Promethazine HCl 25 mg 06/11/18 03:25 Phenergan PO Q4H PRN Nausea/Vomiting Discontinued Medications Generic Name Dose Route Start Last Admin Trade Name Kenisha PRN Reason Stop Dose Admin Fentanyl 100 mcg 06/11/18 03:00 Sublimaze IVPUSH 06/11/18 03:01 ONETIME ONE Sodium Chloride 1,000 mls @ 999 mls/hr 06/11/18 02:21 06/11/18 02:34 Normal Saline IV 06/11/18 03:21 999 mls/hr .BOLUS ONE Administration Promethazine HCl 12.5 mg/ 100.5 mls @ 400 mls/hr 06/11/18 02:21 06/11/18 02: 35 Sodium Chloride IV 06/11/18 02:36 400 mls/hr ONETIME ONE Administration Promethazine HCl 12.5 mg/ 100.5 mls @ 400 mls/hr 06/11/18 02:25 06/11/18 02: 33 Sodium Chloride IV 06/11/18 02:40 400 mls/hr ONETIME ONE Administration Ketorolac Tromethamine 30 mg 06/11/18 02:21 06/11/18 02:34 Toradol IVPUSH 06/11/18 02:22 30 mg ONETIME ONE Administration Morphine Sulfate 5 mg 06/11/18 02:42 06/11/18 02:46 Morphine IVPUSH 06/11/18 02:43 5 mg ONETIME ONE Administration Pantoprazole Sodium 40 mg 06/11/18 03:20 Protonix Iv IVPUSH 06/11/18 03:21 ONETIME ONE - Re-Assessments/Exams Free Text/Narrative Re-Assessment/Exam: 06/11/18 03:10 O2 sats 92-94% in ER. Patient has history of smoking. No complaint of chest pain /SOB at this time. WBC slightly elevated, suspect due to stress reaction to nausea/emesis/ headache. BMP normal. Toradol and NS bolus given. Phenergan IV. Headache and nausea showed some improvement. Patient wished to avoid MS for headache for now due to worry that further nausea may be induced. Is more prone to side effects of dilaudid/ fentanyl and would rather try MS first if further pain control is needed. Plan at this time is to admit to observation for further IV fluid and support for further nausea/emesis Departure - Departure Time of Disposition: 03:12 Disposition: Refer to Observation Condition: Good Clinical Impression: Chemotherapy induced nausea and vomiting - Discharge Information *PRESCRIPTION DRUG MONITORING PROGRAM REVIEWED*: Not Applicable *COPY OF PRESCRIPTION DRUG MONITORING REPORT IN PATIENT IMANI: Not Applicable - Problem List & Annotations (1) Chemotherapy induced nausea and vomiting SNOMED Code(s): 799066167 Code(s): R11.2 - NAUSEA WITH VOMITING, UNSPECIFIED; T45.1X5A - ADVERSE EFFECT OF ANTINEOPLASTIC AND IMMUNOSUP DRUGS, INIT Status: Acute Priority: High Current Visit: No Onset Date: 06/10/18 Annotation/Comment:: Persistent despite multiple doses PO Zofran and Compazine. Admitted observation after ER evaluation. Will attempt control with Phenergan and give IV fluids (2) Pancreatic cancer SNOMED Code(s): 951578966 Code(s): C25.9 - MALIGNANT NEOPLASM OF PANCREAS, UNSPECIFIED Status: Chronic Priority: Low Current Visit: No Onset Date: ~03/14/18 Qualifiers: Pancreatic malignancy location: head of pancreas Qualified Code(s): C25.0 - Malignant neoplasm of head of pancreas (3) Hyperlipidemia SNOMED Code(s): 07988499 Code(s): E78.5 - HYPERLIPIDEMIA, UNSPECIFIED Status: Chronic Priority: Low Current Visit: No Annotation/Comment:: History of dyslipidemia. Qualifiers: Hyperlipidemia type: mixed hyperlipidemia Qualified Code(s): E78.2 - Mixed hyperlipidemia (4) Hypertension SNOMED Code(s): 58020156 Code(s): I10 - ESSENTIAL (PRIMARY) HYPERTENSION Status: Chronic Priority : Low Current Visit: No Annotation/Comment:: Blood Pressures under good control in the emergency room. Qualifiers: Hypertension type: essential hypertension Qualified Code(s): I10 - Essential (primary) hypertension (5) Osteoarthritis SNOMED Code(s): 820793680 Code(s): M19.90 - UNSPECIFIED OSTEOARTHRITIS, UNSPECIFIED SITE Status: Chronic Priority: Low Current Visit: No Annotation/Comment:: Stable by history Qualifiers: Osteoarthritis location: multiple joints Osteoarthritis type: primary Qualified Code(s): M15.0 - Primary generalized (osteo)arthritis (6) Peptic reflux disease SNOMED Code(s): 068223890 Code(s): K21.9 - GASTRO-ESOPHAGEAL REFLUX DISEASE WITHOUT ESOPHAGITIS Status: Chronic Priority: High Current Visit: No Annotation/Comment:: History of PUD. Protonix ordered IV. - Problem List Review Problem List Initiated/Reviewed/Updated: Yes - Assessment/Plan Admission H&P: Please use this note as an admission H&P Assessment:: as above Plan: Admit observation. IV fluid support, antiemetics.
[2018-06-11] MEDS ORDERED: Morphine 10 MG/ML Syringe IVPUSH ONE (02:42)
[2018-06-11] MEDS ORDERED: fentaNYL 100 MCG/2 ML SDV IVPUSH ONE (03:00)
[2018-06-11] MEDS ORDERED: Pantoprazole 40 MG Vial IVPUSH ONE (03:20)
[2018-06-11] MEDS ORDERED: Promethazine 25 MG Tab PO PRN (03:25)
[2018-06-11] MEDS ORDERED: Ketorolac 30 MG/ML SDV IVPUSH PRN (03:27)
[2018-06-11 03:30] LABS: CHLORIDE,CL 104 mmol/L (98-107); SODIUM,NA 143 mmol/L (136-145)
[2018-06-11] MEDS ORDERED: Promethazine 12.5 MG in Sodium Chloride 0.9% 100 ML IV PRN (03:31)
[2018-06-11] MEDS: Sodium Chloride 0.9% 1,000 ML IV SCH ×3 (06:20→22:07)
[2018-06-11] MEDS ORDERED: Promethazine 25 MG in Sodium Chloride 0.9% 100 ML IV PRN (14:19)
[2018-06-11] MEDS: Nicotine 21 MG/24 Hr Patch TRDERM SCH (16:08)
[2018-06-11] MEDS: Dexamethasone 2 MG Tab PO SCH (18:05)
[2018-06-11] MEDS ORDERED: Temazepam 15 MG Cap PO PRN (20:41)
[2018-06-11] MEDS ORDERED: Promethazine 25 MG Tab PO SCH (22:00)
[2018-06-11] MEDS: Promethazine 25 MG Tab PO SCH (22:07)
[2018-06-12] MEDS: Promethazine 25 MG Tab PO SCH ×2 (04:09→09:49)
[2018-06-12] MEDS: Sodium Chloride 0.9% 1,000 ML IV SCH (06:08)
[2018-06-12 11:48] VITALS: BP 116/83
--- NOTE | 2018-06-12 13:13 | PCM.DCSUM1 ---
Discharge Summary - Hospital Course Free Text/Narrative:: Patient is a 58-year-old who was admitted as an observation patient secondary to nausea post Whipple procedure unable to keep anything down patient started on medication which controlled his symptoms feeling much better now ready for discharge Diagnosis: Stroke: No - Discharge Data Discharge Date: 06/12/18 Discharge Disposition: Home, Self-Care 01 Condition: Good - Patient Instructions Diet: Heart Healthy Diet Activity: As Tolerated Driving: Do Not Drive Showering/Bathing: May Shower Notify Provider of: Fever, Increased Pain, Nausea and/or Vomiting - Discharge Plan *PRESCRIPTION DRUG MONITORING PROGRAM REVIEWED*: Not Applicable *COPY OF PRESCRIPTION DRUG MONITORING REPORT IN PATIENT IMANI: Not Applicable Prescriptions/Med Rec: Temazepam [Restoril] 15 mg PO BEDTIME PRN 30 Days #30 cap PRN Reason: Insomnia Home Medications: Home Meds Omeprazole Magnesium [Prilosec Otc] 20 mg PO DAILY 10/26/13 [History] Melatonin 5 mg PO BEDTIME 04/01/18 [History] Multivitamin [Men's Multi-Vitamin] 1 tab PO DAILY 04/01/18 [History] Mv-Mn/Lutein/Zeax/Bilber/Hb277 [Macular Health Formula Capsule] 1 each PO DAILY 04/01/18 [History] Dexamethasone 2 tab PO DAILY 06/11/18 [History] Ondansetron HCl [Zofran] 4 mg PO PRN 06/11/18 [History] Prochlorperazine Maleate [Compazine] 10 mg PO PRN 06/11/18 [History] Nicotine [Habitrol] 21 mg TRDERM DAILY patch 06/12/18 [Rx] Promethazine [Phenergan] 50 mg PO Q6H 10 Days #40 tablet 06/12/18 [Rx] Promethazine [Phenergan] 50 mg PO Q6H PRN #40 tab 06/12/18 [Rx] Temazepam [Restoril] 15 mg PO BEDTIME PRN 15 Days #15 cap 06/12/18 [Rx] Temazepam [Restoril] 15 mg PO BEDTIME PRN 30 Days #30 cap 06/12/18 [Rx] Patient Handouts: Ketorolac injection, Promethazine injection, Nausea and Vomiting, Adult, Morphine injection solution Forms: ED Department Discharge Referrals: Alfonso Matias MD [ED Physician] - - Discharge Summary/Plan Comment Discharge Summary/Plan Comment: Patient will be sent home doing 100% better on Phenergan 25 mg 1-2 tablets every 6 hours for nausea and vomiting we will start Restoril 15 mg daily we will stop the Xanax after the Restoril started he should be followed in the clinic as instructed by surgeon we will hold his blood pressure medication and monitor the as needed - General Info Date of Service: 06/12/18 Functional Status: Reports: New Symptoms - Review of Systems General: Reports: Other (Nausea) HEENT: Reports: No Symptoms Pulmonary: Reports: No Symptoms Cardiovascular: Reports: No Symptoms Gastrointestinal: Reports: Nausea, Other (Crampy) Genitourinary: Reports: No Symptoms Musculoskeletal: Reports: No Symptoms Skin: Reports: No Symptoms Neurological: Reports: No Symptoms Psychiatric: Reports: No Symptoms - Patient Data Vitals - Most Recent: Last Vital Signs Temp 97.5 F 06/12/18 08:00 Pulse 63 06/12/18 08:00 Resp 20 06/12/18 08:00 BP 116/83 06/12/18 08:00 Pulse Ox 95 06/12/18 08:00 Weight - Most Recent: 209 lb 0.007 oz I&O - Last 24 hours: Intake & Output 06/11/18 06/12/18 06/12/18 22:59 06:59 14:59 Intake Total 1350 1398 50 Output Total 550 1200 Balance 800 198 50 Med Orders - Current: Current Medications Dexamethasone (Dexamethasone) 8 mg PO DAILY@1800 [facility] Stop: 06/12/18 18:01 Last Admin: 06/11/18 18:05 Dose: 8 mg Sodium Chloride (Normal Saline) 1,000 mls @ 125 mls/hr IV ASDIRECTED [facility] Last Admin: 06/12/18 06:08 Dose: 125 mls/hr Promethazine HCl 25 mg/ Sodium (Chloride) 101 mls @ 400 mls/hr IV Q6H PRN PRN Reason: Nausea Nicotine (Habitrol) 21 mg TRDERM DAILY [facility] Last Admin: 06/11/18 16:08 Dose: 21 mg Promethazine HCl (Phenergan) 50 mg PO Q6H [facility] Last Admin: 06/12/18 09:49 Dose: 50 mg Temazepam (Restoril) 15 mg PO BEDTIME PRN PRN Reason: Insomnia Last Admin: 06/11/18 22:09 Dose: 15 mg Discontinued Medications Fentanyl (Sublimaze) 100 mcg IVPUSH ONETIME ONE Stop: 06/11/18 03:01 Sodium Chloride (Normal Saline) 1,000 mls @ 999 mls/hr IV .BOLUS ONE Stop: 06/11/18 03:21 Last Admin: 06/11/18 02:34 Dose: 999 mls/hr Promethazine HCl 12.5 mg/ (Sodium Chloride) 100.5 mls @ 400 mls/hr IV ONETIME ONE Stop: 06/11/18 02:36 Last Admin: 06/11/18 02:35 Dose: 400 mls/hr Promethazine HCl 12.5 mg/ (Sodium Chloride) 100.5 mls @ 400 mls/hr IV ONETIME ONE Stop: 06/11/18 02:40 Last Admin: 06/11/18 02:33 Dose: 400 mls/hr Sodium Chloride (Normal Saline) 1,000 mls @ 500 mls/hr IV .BOLUS ONE Stop: 06/11/18 05:25 Last Admin: 06/11/18 04:11 Dose: 500 mls/hr Promethazine HCl 12.5 mg/ (Sodium Chloride) 100.5 mls @ 400 mls/hr IV Q6H PRN PRN Reason: Nausea Last Admin: 06/11/18 11:15 Dose: 400 mls/hr Ketorolac Tromethamine (Toradol) 30 mg IVPUSH ONETIME ONE Stop: 06/11/18 02:22 Last Admin: 06/11/18 02:34 Dose: 30 mg Ketorolac Tromethamine (Toradol) 30 mg IVPUSH Q6H PRN PRN Reason: Pain Stop: 06/16/18 03:27 Morphine Sulfate (Morphine) 5 mg IVPUSH ONETIME ONE Stop: 06/11/18 02:43 Last Admin: 06/11/18 02:46 Dose: 5 mg Pantoprazole Sodium (Protonix Iv) 40 mg IVPUSH ONETIME ONE Stop: 06/11/18 03:21 Last Admin: 06/11/18 08:25 Dose: 40 mg Promethazine HCl (Phenergan) 25 mg PO Q4H PRN PRN Reason: Nausea/Vomiting Last Admin: 06/11/18 16:07 Dose: 25 mg Promethazine HCl (Phenergan) 25 mg PO Q6H [facility] - Exam General: Reports: Alert, Oriented HEENT: Reports: Pupils Equal, Pupils Reactive, EOMI, Mucous Membr. Moist/[place] Neck: Reports: Supple Lungs: Reports: Clear to Auscultation, Normal Respiratory Effort Cardiovascular: Reports: Regular Rate, Regular Rhythm GI/Abdominal Exam: Normal Bowel Sounds, Soft, Non-Tender, No Organomegaly, No Distention, No Abnormal Bruit, No Mass, Pelvis Stable (Male) Exam: No Hernia, Normal Inspection, Normal Prostate, Circumcised Back Exam: Reports: Normal Inspection, Full Range of Motion Extremities: Normal Inspection, Normal Range of Motion, Non-Tender, No Pedal Edema, Normal Capillary Refill Skin: Reports: Warm, Dry, Intact Wound/Incisions: Reports: Healing Well Neurological: Reports: No New Focal Deficit Psy/Mental Status: Reports: Alert, Normal Affect, Normal Mood
[2018-06-12] MEDS: Nicotine 21 MG/24 Hr Patch TRDERM SCH (13:32)
[2018-06-12] MEDS: Dexamethasone 2 MG Tab PO SCH (13:59)
== END 2018-06-12 14:30 | disposition home or self-care (01) ==
LOC: LL.ED 01:53 → UNDOADMOB 02:52 → LL.MS 02:52 → UNDOADMOB 03:22 → UNDODISOB 06-12 14:30
PROVIDERS: ADMIT Emergency Medicine; ATTEND Family Medicine
DX: R11.2 Nausea with vomiting, unspecified (principal); T45.1X5A Adverse effect of antineoplastic and immunosuppressive drugs, initial encounter; C25.0 Malignant neoplasm of head of pancreas; E78.00 Pure hypercholesterolemia, unspecified; E78.2 Mixed hyperlipidemia; I10 Essential (primary) hypertension; K21.9 Gastro-esophageal reflux disease without esophagitis; M15.0 Primary generalized (osteo)arthritis; Z79.899 Other long term (current) drug therapy
CPT/HCPCS: 36415; 36590; 80048; 85025; 96361; 96365; 96366; 96375; 99285; A9270-GY; C9113; G0378; J1642; J1885; J2270; J2550; J7030; J7050; J8540

== ENCOUNTER 2018-11-15 10:25 | Emergency (ER) | payer BC ==
--- NOTE | 2018-11-15 10:35 | EDM.PDOC ---
ED HPI GENERAL MEDICAL PROBLEM - General Chief Complaint: General Stated Complaint: Reaction to Granix injection Time Seen by Provider: 11/15/18 10:25 Source of Information: Reports: Patient, Family (), Old Records ([facility] chart/EMR), Other ([facility]MR) History Limitations: Reports: No Limitations - History of Present Illness INITIAL COMMENTS - FREE TEXT/NARRATIVE: The patient was brought to the emergency room via private automobile by his for evaluation of recurrence of his previous near syncopal episode about 45 minutes after receiving his Granix injection at the 9 AM this morning in this facility. He complains of sudden onset dizziness, dyspnea, throat fullness , nausea, and nonspecific fatigue. Patient did have similar type symptoms on with evaluation in this facility at that time. The patient denies any chest pain/pressure, heart flutter, orthopnea, diaphoresis, paresthesias, recent decreased exercise tolerance, or any other anginal-type symptoms. No history of additional allergic reactions including rash, pruritus, dysphagia, angioedema, etc. No recent history of abdominal pain, heartburn, nausea, diarrhea, melena, gross hematochezia, or any food intolerance, including fatty foods, etc.. The patient also denies any recent fever, cough, wheezing, etc.. No history of recent headaches, visual changes, diplopia, change in mental status, or other change in neurological status. He denies any fall, pain, etc. the patient is currently being treated with oral Levaquin and Flagyl for recurrent hepatitic abscess. Onset: Today, Sudden, Gradual Onset Date: 11/15/18 Onset Time: 09:55 Duration: Constant Location: Reports: Generalized (As above), Other (No pain) Quality: Reports: Same as Previous Episode Improves with: Reports: None Worsens with: Reports: None Context: Reports: Other (As above). Denies: Sick Contact, Trauma Associated Symptoms: Reports: Nausea/Vomiting (No emesis), Shortness of Breath, Syncope (Near-syncope), Weakness (Generalized as above). 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: Other (see below) (None) - Related Data Allergies Allergy/AdvReac Type Severity Reaction Status Date / Time No Known Allergies Allergy Verified 09/20/18 09:07 Home Meds: Home Meds Omeprazole Magnesium [Prilosec Otc] 20 mg PO DAILY 10/26/13 [History] Melatonin 5 mg PO BEDTIME 04/01/18 [History] Multivitamin [Men's Multi-Vitamin] 1 tab PO DAILY 04/01/18 [History] Mv-Mn/Lutein/Zeax/Bilber/Hb277 [Macular Health Formula Capsule] 1 each PO DAILY 04/01/18 [History] Dexamethasone 2 tab PO DAILY PRN 06/11/18 [History] Ondansetron HCl [Zofran] 4 mg PO Q6H PRN 06/11/18 [History] Prochlorperazine Maleate [Compazine] 10 mg PO Q8H PRN 06/11/18 [History] Escitalopram Oxalate 5 mg PO DAILY 09/13/18 [History] Lipase/Protease/Amylase [Yuri SHAH 15,000 Unit] 2 tab PO TIDMEALS 09/13/18 [ History] Loratadine/Pseudoephedrine [Claritin-D 24 Hour Tablet] 1 each PO DAILY PRN 09/13 [History] Temazepam 7.5 mg PO BEDTIME PRN 09/13/18 [History] Lipase/Protease/Amylase [Yuri SHAH 15,000 Unit] 2 cap PO ASDIRECTED PRN #100 capsule. 11/15/18 [Rx] Sodium Chloride 0.9% [Saline Flush] 10 ml FLUSH ASDIRECTED PRN syringe [Rx] Past Medical History HEENT History: Reports: Hard of Hearing, Macular Degeneration, Other (See Below) . Denies: Allergic Rhinitis, Cataract, Glaucoma, Impaired Vision, Retinal Detachment Other HEENT History: Possible beginning macular degeneration of the right eye. He does not wear glasses. Mild bilateral presbycusis with no hearing aide therapy. Cardiovascular History: Reports: High Cholesterol, Hypertension, Syncope, Other (See Below). Denies: Afib, Arrhythmia, Blood Clots/VTE/DVT, CAD, Heart Failure , Heart Murmur, ND, Pacemaker, PVD, Stents Other Cardiovascular History: Recurrent near-syncope after Granix injections with initial episode on 09/13/18. Dyslipidemia. Coronary artery calcifications by CT scan. Chronic d-dimer elevations with negative workup and possibly secondary to chemotherapy Respiratory History: Reports: Intubation, Previous, Other (See Below). Denies: Asthma, Bronchitis, Recurrent, COPD, Intubation, Difficult, PE, Pneumonia, Recurrent, Pneumothorax, Sleep Apnea, TB Other Respiratory History: Stable 3 millimeter right middle lobe pulmonary nodule. Gastrointestinal History: Reports: Cholelithiasis, Colon Polyp, GERD, Other ( See Below). Denies: Bowel Obstruction, Celiac Disease, Chronic Constipation, Cirrhosis, Diverticulosis, Fecal Incontinence, Gastritis, GI Bleed, Hepatitis, Hiatal Hernia, Inflammatory Bowel Disease, Irritable Bowel Syndrome, Jaundice, Pancreatitis Other Gastrointestinal History: Pancreatic cancer as below. History of recurrent multiple colonic polyps in the sigmoid region including multiple hyperplastic colonic polyps and tubular adenomas with initial diagnosis on . Patient did have a recurrence of his tubular adenoma at 40 cm at time of colonoscopy on 10/25/15 with additional hyperplastic polyps at that time. Gangrenous cholelithiasis cholecystitis requiring surgery as below. Hepatic abscess in October 2018. Genitourinary History: Reports: None. Denies: Acute Renal Failure, BPH, Chronic Renal Insuffiency, Prostate Disorder, Renal Calculus, Retention, Urinary , STD, Urinary Incontinence, UTI, Recurrent Musculoskeletal History: Reports: Arthritis, Back Pain, Chronic, Neck Pain, Chronic, Osteoarthritis, Other (See Below). Denies: Amputation, Gout, RA, SLE Other Musculoskeletal History: Nonspecific myalgias secondary to labor and physical activity. Previous history of CK elevation possibly secondary to statin therapy. Degenerative disc disease particularly in C6-C7 with additional spinal stenosis at L4-L5. Neurological History: Reports: Other (See Below). Denies: Cerebral Aneurysms, Concussion, CVA, Headaches, Chronic, Head Trauma, Migraines, MS, Parkinson's, Seizure, TIA, Vertigo Other Neuro History: Limited prolactin level on 09/13/18 with no direct indication of seizure activity. Psychiatric History: Reports: Anxiety, Depression. Denies: Abuse, Victim of, ADD, ADHD, Addiction, Alzheimers Disease, Dementia, Psych Hospitalization(s), PTSD, Suicide Attempt, Suicidal Ideation Endocrine/Metabolic History: Reports: None. Denies: Diabetes, Type I, Diabetes , Type II, Hypothyroidism, IDDM, Osteopenia, Osteoporosis Hematologic History: Reports: None. Denies: Anemia, Heparin Induced Thrombocytopenia, Iron Deficiency Immunologic History: Reports: Immunosuppression, Other (See Below). Denies: AIDS, HIV, SLE Other Immunologic History: Current chemotherapy for his pancreatic cancer. Oncologic (Cancer) History: Reports: Pancreatic, Other (See Below). Denies: Basal Cell Carcinoma, Bladder, Colon, Hodgkin's Lymphoma, Leukemia, Lymphoma, Malignant Melanoma, Metastatic, Non-Hodgkin's Lymphoma, Prostate Other Oncologic History: Pancreatic cancer diagnosed on 04/01/18 with current chemotherapy and previous surgery as below. Dermatologic History: Reports: None. Denies: Angiodema, Eczema, Psoriasis - Infectious Disease History Infectious Disease History: Reports: Chicken Pox. Denies: C-Difficile, Helicobacter Pylori, Measles, Meningitis, Mononucleosis, MRSA, Mumps, Pertussis (Whooping Cough), Rheumatic Fever, Rubella, Scarlet Fever, Shingles, TB, VRE - Past Surgical History Head Surgeries/Procedures: Reports: None HEENT Surgical History: Reports: Oral Surgery, Other (See Below). Denies: Adenoidectomy, Cataract Surgery, Laser Surgery, LASIK, Myringotomy w Tube(s), Tonsillectomy Other HEENT Surgeries/Procedures: Peggs teeth extraction 4 at age 22. Cardiovascular Surgical History: Reports: Vascular Surgery, Other (See Below). Denies: Varicose Other Cardiovascular Surgeries/Procedures: Right-sided central line/port placement on 06/02/18. Respiratory Surgical History: Reports: None. Denies: Thoracentesis GI Surgical History: Reports: Cholecystectomy, Colonoscopy, EGD, Polypectomy, Other (See Below). Denies: Appendectomy, Hernia, Abdominal, Hernia, Inguinal, Hernia Repair/Other Other GI Surgeries/Procedures: Liver biopsy with diagnosed hepatic abscess and . Whipple procedure on 05/07/18 for his pancreatic cancer. Last EGD on . Laparoscopic cholecystectomy on 03/02/08. Excision of multiple hyperplastic colonic polyps and tubular adenomas as above with EGD and colonoscopy performed on 10/31/13 with last colonoscopy on 10/25/15. Male Surgical History: Reports: Circumcision, Vasectomy, Other (See Below). Denies: TURP-Transurethral Resection of Prostate Other Male Surgeries/Procedures: Vasectomy at age 34. Circumcision as an . Endocrine Surgical History: Reports: None. Denies: Thyroid Biopsy Neurological Surgical History: Reports: None. Denies: C-Spine, Discectomy, Laminectomy, Lumbar Spine, Sacral Spine, Scoliosis, Spinal Fusion, Thoracic Spine, Vertebroplasty Musculoskeletal Surgical History: Reports: None. Denies: Arthroscopic Procedure , Carpal Tunnel, Ganglion Cyst, Joint Replacement, ORIF, Shoulder Surgery Oncologic Surgical History: Reports: Other (See Below) Other Oncologic Surgeries/Procedures: Whipple procedure as above. Dermatological Surgical History: Reports: None - Past Imaging History Past Imaging History: Reports: Cardiac Echo (09/14/18 with ejection fraction of 65 %.), CAT Scan (CT scan of the abdomen and pelvis on 11/11/18, 09/13/18, 04/12/18 and 04/01/18. Negative CTA of the chest on 09/13/18 for PE with incidental right pulmonary nodule as above. CT of the chest on 04/23/18), PET (Whole Body PET/CT scan in 10/2018 and on 08/10/18.), Stress Testing (Exercise cardiac stress test on 09/15/18), Ultrasound (Testicular ultrasound on 05/30/11. Right upper quadrant ultrasound on 03/01/08. Abdominal ultrasound on 02/28/08.) Social & Family History - Family History HEENT: Reports: None. Denies: Glaucoma, Macular Degeneration, Retinal Detachment Cardiac: Reports: Afib, Arrhythmia, Blood Clots/VTE/DVT, CAD, Hypertension, ND, Pacemaker, Other (See Below) Other Cardiac Family History: Father with history of atrial fibrillation and arrhythmia requiring pacemaker placement. Father with hypertension. Father with history of DVT of the legs. Respiratory: Reports: None. Denies: Asthma, COPD, PE, Pneumothorax, Sleep Apnea GI: Reports: Colon Polyps, PUD, Other (See Below) Other GI Family History: Paternal grandfather with colon cancer as below. Sister with unknown type of colonic polyps. Father with peptic ulcer disease. : Reports: Dialysis, Renal Disease/Insufficiency, Other (See Below) Other Family History: Paternal grandmother with diabetic nephropathy requiring dialysis. OBGYN: Reports: None. Denies: Recurrent Spontaneous Musculoskeletal: Reports: None. Denies: Arthritis, Fibromyalgia, Gout, RA, SLE Neurological: Reports: None. Denies: Alzheimers Disease, CVA, Dementia, Migraines, MS, Neuropathy, Peripheral, Parkinson's, Seizure, TIA Psychiatric: Reports: None. Denies: Abuse, Victim of, ADD, ADHD, Anxiety, Psych Hospitalization(s), Psychosis, PTSD, Suicide Attempt Endocrine/Metabolic: Reports: Diabetes, type II, Other (See Below). Denies: Diabetes, Gestational, Diabetes, Type I, Diabetes Mellitus, Type 3c, Hypothyroidism, IDDM Other Endocrine/Metabolic Family History: Paternal grandmother with AODM Hematologic: Reports: None. Denies: Anemia, SLE Immunologic: Reports: None. Denies: AIDS, HIV, SLE Dermatologic: Reports: None. Denies: Eczema, Psoriasis Oncologic: Reports: Colon, Other (See Below). Denies: Hodgkin's Lymphoma, Leukemia, Lymphoma, Non-Hodgkin's Lymphoma, Prostate, Skin Other Oncologic Family History: Paternal grandfather with fatal colon cancer at age 60. - Tobacco Use Smoking Status *Q: Former Smoker Tobacco Use Within Last Twelve Months: Cigarettes Years of Tobacco use: 38 Packs/Tins Daily: 1.5 Packs/Tins Daily Comment: Started smoking at age 19 with maximum use of 2.5 packs per day. Stopped smoking on 04/01/18 after diagnosis of his pancreatic cancer. Used Tobacco, but Quit: Yes Smoking Cessation Information Provided To Patient: No Second Hand Smoke Exposure: No Second Hand Smoke Education Provided: No - Caffeine Use Caffeine Use: Reports: Soda (3 sodas per day). Denies: Coffee, Energy Drinks, Tea - Alcohol Use Alcohol Use History: No Days Per Week of Alcohol Use: 0 Number of Drinks Per Day: 0 Number of Drinks Per Day Comment: No alcohol use since 04/01/18 after he was diagnosed with pancreatic cancer. Only mild previous alcohol intake. No previous DWIs, problems with alcohol abuse, etc. Total Drinks Per Week: 0 Alcohol Use in Last Twelve Months: Yes - Recreational Drug Use Recreational Drug Use: No Drug Use in Last 12 Months: No Recreational Drug Type: Denies: Amphetamines (Speed), Benzodiazepines, Fentanyl , Inhalants (Glues, Solvents, Aerosols), LSD (Acid), Marijuana/Hashish, Methamphetamine, Morphine, Oxycodone - Living Situation & Occupation Living situation: Reports: (Second in 2014), (2010 with 2 children from that relationship), with Family () Occupation: Employed ([employer]) ED ROS GENERAL - Review of Systems Review Of Systems: ROS reveals no pertinent complaints other than HPI. ED EXAM, GENERAL - Physical Exam Exam: See Below Exam Limited By: No Limitations General Appearance: Alert, WD/WN, No Apparent Distress Eye Exam: Bilateral Eye: EOMI, Normal Fundi, Normal Inspection (No nystagmus), PERRL Ears: Normal External Exam, Normal Canal, Hearing Grossly Normal, Normal TMs Nose: Normal Inspection, Normal Mucosa, No Blood Throat/Mouth: Normal Inspection, Normal Lips, Normal Teeth, Normal Gums, Normal Oropharynx, Normal Voice, No Airway Compromise. No: Perioral Cyanosis Head: Atraumatic, Normocephalic, Other (Alopecia secondary to chemotherapy). No : Facial Swelling, Facial Tenderness, Sinus Tenderness Neck: Normal Inspection, Supple, Non-Tender, Full Range of Motion. No: Carotid Bruit, Lymphadenopathy (L), Lymphadenopathy (R), Thyromegaly Respiratory/Chest: No Respiratory Distress, Lungs Clear, Normal Breath Sounds, No Accessory Muscle Use, Chest Non-Tender. No: Pleural Rub, Retractions Cardiovascular: Normal Peripheral Pulses, Regular Rate, Rhythm, No Edema, No Gallop, No JVD, No Murmur, No Rub. No: Gallop/S3, Gallop/S4, Friction Rub Peripheral Pulses: 2+: Radial (L), Radial (R), Dorsalis Pedis (L), Dorsalis Pedis (R) GI/Abdominal: Normal Bowel Sounds, Soft, Non-Tender, No Organomegaly, No Distention, No Abnormal Bruit, No Mass. No: Guarding (Male) Exam: Deferred Rectal (Males) Exam: Deferred Back Exam: Normal Inspection, Full Range of Motion. No: CVA Tenderness (L), CVA Tenderness (R), Muscle Spasm Extremities: Normal Inspection, Normal Range of Motion, Non-Tender, No Pedal Edema, Normal Capillary Refill. No: Tahir's Sign Neurological: Alert, Oriented, CN II-XII Intact, Normal Cognition, Normal Gait, Normal Reflexes (Negative Babinski's, finger to nose, and pronator rotation tests. No evidence of facial paresis, tongue deviation, orthostasis, etc.. Excellent reverse thought processes.), No Motor/Sensory Deficits, Other ( Borderline orthostasis on arrival) Psychiatric: Normal Affect, Normal Mood Skin Exam: Pallor (Mild to moderate pallor and was flushing on arrival). No: Diaphoretic, Wound/Incision Lymphatic: No Adenopathy EKG INTERPRETATION EKG Date: 11/15/18 Time: 10:52 Rhythm: NSR Rate (Beats/Min): 63 [place]: Normal (Left cardiac axis) P-Wave: Present (Mild diffuse biphasic P waves) QRS: Normal (2.08 seconds representing repolarization changes with T-wave inversion in leads 3 and V1 with new T-wave inversion in lead V1) ST-T: Normal QT: Normal MI/PQ Interval: 0.15 seconds Comparison: Change From Previous EKG (As above since 09/14/18) EKG Interpretation Comments: 1. No acute ischemic changes Course - Vital Signs Last Recorded V/S: Last Vital Signs Temp 36.5 C 11/15/18 10:25 Pulse 67 11/15/18 10:25 Resp 17 11/15/18 12:51 BP 136/88 11/15/18 12:51 Pulse Ox 98 11/15/18 12:51 Vital Signs - 24 hr 11/15/18 11/15/18 11/15/18 10:25 10:45 11:00 Temperature [ 36.5 C Temporal] Pulse, 67 Peripheral [ Pulse Oximetry] Respiratory 15 15 17 Rate Blood Pressure 108/70 106/76 104/77 [Right Upper Arm] O2 Sat by Pulse 93 L 93 L 95 Oximetry 11/15/18 11/15/18 11/15/18 11:15 11:30 11:45 Temperature [ Temporal] Pulse, Peripheral [ Pulse Oximetry] Respiratory 15 15 14 Rate Blood Pressure 118/74 113/75 111/78 [Right Upper Arm] O2 Sat by Pulse 95 93 L 97 Oximetry 11/15/18 12:51 Temperature [ Temporal] Pulse, Peripheral [ Pulse Oximetry] Respiratory 17 Rate Blood Pressure 136/88 [Right Upper Arm] O2 Sat by Pulse 98 Oximetry Vital Signs - 24 hr 11/15/18 11/15/18 11/15/18 10:25 10:45 11:00 Temperature [ 36.5 C Temporal] Pulse, 67 Peripheral [ Pulse Oximetry] Respiratory 15 15 17 Rate Blood Pressure 108/70 106/76 104/77 [Right Upper Arm] O2 Sat by Pulse 93 L 93 L 95 Oximetry 11/15/18 11/15/18 11/15/18 11:15 11:30 11:45 Temperature [ Temporal] Pulse, Peripheral [ Pulse Oximetry] Respiratory 15 15 14 Rate Blood Pressure 118/74 113/75 111/78 [Right Upper Arm] O2 Sat by Pulse 95 93 L 97 Oximetry 11/15/18 12:51 Temperature [ Temporal] Pulse, Peripheral [ Pulse Oximetry] Respiratory 17 Rate Blood Pressure 136/88 [Right Upper Arm] O2 Sat by Pulse 98 Oximetry - Orders/Labs/Meds Orders: Active Orders 24 hr Category Date Time Status Cardiac Monitoring [RC] . DIRECTED Care 11/15/18 10:35 Active Communication Order [RC] ROUTINE Care 11/15/18 12:53 Active EKG Documentation Completion [RC] ASDIRECTED Care 11/15/18 10:35 Active Oxygen Therapy, ED [RC] PRN Care 11/15/18 10:35 Active Peripheral IV Care [RC] . DIRECTED Care 11/15/18 10:35 Active Pulse Oximetry [RC] CONTINUOUS Care 11/15/18 10:35 Active Up With Assistance [RC] PFP Care 11/15/18 10:35 Active Vital Signs [RC] PFP Care 11/15/18 10:35 Active Nothing per Oral Now Diet [DIET] Diet 11/15/18 Breakfast Active Chest 1V Frontal [CR] Stat Exams 11/15/18 10:35 Taken Venous Doppler Lwr Ext Bi [US] Urgent Exams 11/15/18 11:20 Taken Sodium Chloride 0.9% [Saline Flush] Med 11/15/18 10:35 Active 10 ml FLUSH ASDIRECTED PRN Obtain Past Medical Record [OM.PC] Urgent Oth 11/15/18 10:35 Active Peripheral IV Insertion Adult [OM.PC] Stat Oth 11/15/18 10:35 Ordered Resuscitation Status Stat Resus Stat 11/15/18 10:35 Ordered Medication Orders Sodium Chloride (Saline Flush) 10 ml FLUSH ASDIRECTED PRN PRN Reason: Keep Vein Open Last Admin: 11/15/18 10:56 Dose: 10 ml Labs: Laboratory Tests 11/15/18 11/15/18 11/15/18 Range/Units 10:40 10:40 10:40 WBC 11.3 H (4.0-10.2) K/uL RBC 4.52 (4.33-5.41) M/uL Hgb 14.6 D (13.1-16.8) g/dL Hct 43.4 (39.0-49.0) % MCV 96.0 (84.0-98.0) fL MCH 32.3 (28.2-33.3) pg MCHC 33.6 (31.7-36.0) g/dL RDW 13.5 (11.2-14.1) % Plt Count 164 (150-350) K/uL Neut % (Auto) 88.5 H (45.0-80.0) % Lymph % (Auto) 11.0 (10.0-50.0) % Burke % (Auto) 0.3 L (2.0-14.0) % Eos % (Auto) 0.1 (0.0-5.0) % Baso % (Auto) 0.1 (0.0-2.0) % Neut # (Auto) 10.03 H (1.40-7.00) K/uL Lymph # (Auto) 1.24 (0.50-3.50) K/uL Burke # (Auto) 0.03 (0.00-1.00) K/uL Eos # (Auto) 0.01 (0.00-0.50) K/uL Baso # (Auto) 0.01 (0.00-0.20) K/uL PT 10.7 (9.5-12.0) SEC INR 1.0 APTT 23.8 (21.0-31.3) SEC D-Dimer, Quantitative 1620 H (0-400) ng/mL Sodium (136-145) mmol/L Potassium (3.5-5.1) mmol/L Chloride (98-107) mmol/L Carbon Dioxide (21.0-32.0) mmol/L BUN (7-18) mg/dL Creatinine (0.51-1.17) mg/dL Est Cr Clr Drug Dosing mL/min Estimated GFR (MDRD) mL/min Glucose (74-106) mg/dL Lactic Acid (0.4-2.0) mmol/L Uric Acid (2.6-7.2) mg/dL Calcium (8.5-10.1) mg/dL Magnesium (1.8-2.4) mg/dL Total Bilirubin (0.2-1.0) mg/dL AST (15-37) U/L ALT (12-78) U/L Alkaline Phosphatase (46-116) IU/L Creatine Kinase (26-308) U/L Creatine Kinase Index (0.0-2.5) % CK-MB (CK-2) (0.00-3.60) ng/mL Troponin I (0.000-0.056) ng/mL NT-Pro-B Natriuret Pep (0-125) pg/mL Total Protein (6.4-8.2) g/dL Albumin (3.4-5.0) g/dL Amylase (25-115) U/L Lipase (73-393) U/L TSH, Ultra Sensitive (0.358-3.740) mIU/mL 11/15/18 11/15/18 Range/Units 10:40 10:40 WBC (4.0-10.2) K/uL RBC (4.33-5.41) M/uL Hgb (13.1-16.8) g/dL Hct (39.0-49.0) % MCV (84.0-98.0) fL MCH (28.2-33.3) pg MCHC (31.7-36.0) g/dL RDW (11.2-14.1) % Plt Count (150-350) K/uL Neut % (Auto) (45.0-80.0) % Lymph % (Auto) (10.0-50.0) % Burke % (Auto) (2.0-14.0) % Eos % (Auto) (0.0-5.0) % Baso % (Auto) (0.0-2.0) % Neut # (Auto) (1.40-7.00) K/uL Lymph # (Auto) (0.50-3.50) K/uL Burke # (Auto) (0.00-1.00) K/uL Eos # (Auto) (0.00-0.50) K/uL Baso # (Auto) (0.00-0.20) K/uL PT (9.5-12.0) SEC INR APTT (21.0-31.3) SEC D-Dimer, Quantitative (0-400) ng/mL Sodium 138 (136-145) mmol/L Potassium 3.7 (3.5-5.1) mmol/L Chloride 104 (98-107) mmol/L Carbon Dioxide 22.2 (21.0-32.0) mmol/L BUN 19 H (7-18) mg/dL Creatinine 0.87 (0.51-1.17) mg/dL Est Cr Clr Drug Dosing 100.34 mL/min Estimated GFR (MDRD) > 60 mL/min Glucose 114 H (74-106) mg/dL Lactic Acid 1.8 (0.4-2.0) mmol/L Uric Acid 4.0 (2.6-7.2) mg/dL Calcium 8.7 (8.5-10.1) mg/dL Magnesium 1.6 L (1.8-2.4) mg/dL Total Bilirubin 0.6 (0.2-1.0) mg/dL AST 52 H (15-37) U/L ALT 44 (12-78) U/L Alkaline Phosphatase 108 (46-116) IU/L Creatine Kinase 88 (26-308) U/L Creatine Kinase Index 1.3 (0.0-2.5) % CK-MB (CK-2) 1.10 (0.00-3.60) ng/mL Troponin I 0.013 (0.000-0.056) ng/mL NT-Pro-B Natriuret Pep 175 H (0-125) pg/mL Total Protein 6.2 L (6.4-8.2) g/dL Albumin 3.1 L (3.4-5.0) g/dL Amylase 51 (25-115) U/L Lipase 68 L (73-393) U/L TSH, Ultra Sensitive 1.621 (0.358-3.740) mIU/mL Meds: Medications Generic Name Dose Route Start Last Admin Trade Name Freq PRN Reason Stop Dose Admin Sodium Chloride 10 ml 11/15/18 10:35 11/15/18 10:56 Saline Flush FLUSH 10 ml ASDIRECTED PRN Administration Keep Vein Open Discontinued Medications Generic Name Dose Route Start Last Admin Trade Name Freq PRN Reason Stop Dose Admin Famotidine 40 mg 11/15/18 10:35 11/15/18 10:55 Pepcid IVPUSH 11/15/18 10:36 40 mg ONETIME ONE Administration Lactated Ringer's 1,000 mls @ 999 mls/hr 11/15/18 10:40 11/15/18 10:55 Ringers, Lactated IV 11/15/18 11:40 999 mls/hr .BOLUS ONE Administration - Radiology Interpretation Free Text/Narrative:: Chest x-ray, portable, shows evidence of somewhat poor inspiratory film with possible mild pulmonary obstructive disease and prominent proximal aortic arch. No pulmonary infiltrates, cardiomegaly, CHF, pneumothorax, etc. Verbal report from our research instrumentation technician, Isabelle, with negative preliminary report for DVT of the venous Doppler studies of the lower extremities Departure - Departure Time of Disposition: 13:10 Disposition: Home, Self-Care 01 Condition: Good Clinical Impression: Peptic reflux disease, Elevated d-dimer, Hypoalbuminemia, Hypomagnesemia, Elevated LFTs Hypertension Qualifiers: Hypertension type: essential hypertension Qualified Code(s): I10 - Essential ( primary) hypertension Pancreatic cancer Qualifiers: Pancreatic malignancy location: head of pancreas Qualified Code(s): C25.0 - Malignant neoplasm of head of pancreas Syncope Qualifiers: Syncope type: unspecified Qualified Code(s): R55 - Syncope and collapse Osteoarthritis Qualifiers: Osteoarthritis location: multiple joints Osteoarthritis type: primary Qualified Code(s): M15.0 - Primary generalized (osteo)arthritis - Discharge Information *PRESCRIPTION DRUG MONITORING PROGRAM REVIEWED*: Not Applicable *COPY OF PRESCRIPTION DRUG MONITORING REPORT IN PATIENT IMANI: Not Applicable Prescriptions: Lipase/Protease/Amylase [Yuri SHAH 15,000 Unit] 2 cap PO ASDIRECTED PRN #100 capsule. PRTy Reason: Snacks Instructions: Near-Syncope, [id number] Referrals: Mimi Aldana, [facility] [Primary Care Provider] - Forms: ED Department Discharge Additional Instructions: 1. Follow up with your regular provider in 10-14 days as needed, if symptoms persist. Bring these discharge instructions with you to that visit.. 2. Activity as tolerated with fall precautions, etc. as discussed. 3. Consider further cardiac workup including Cardiolite stress test on an outpatient basis as discussed. 4. Immediately after this visit verify that your cellular telephone's voicemail has been activated and is empty. Also verify that your home telephone 's answering machine is operating properly and has space to receive messages. Note that it is sometimes necessary for us to be able to contact you at a later date to discuss your medical care. 5. Please remember that we are ALWAYS here for you and want to answer any questions you may have. Feel free to call the hospital any time and we call you back [facility]. - Problem List & Annotations (1) Syncope SNOMED Code(s): 818441345 Code(s): R55 - SYNCOPE AND COLLAPSE Status: Acute Priority: High Current Visit: Yes Onset Date: 09/13/18 Annotation/Comment:: Recurrent near syncopal episodes as above. Patient symptoms completely resolved after 1 L IV bolus of lactated Ringer's. Note negative workup both in August and today. His did contact the oncology clinic at [facility] in [place], who did agree to my ordering IV Solu-Medrol and 1 L of lactated Ringer's IV bolus at time of each Granix injection. The patient is also to be observed for at least one hour after administration of his Granix. No true allergic-type symptoms, including angioedema, etc. with EpiPen not warranted. Fall precautions, etc. discussed. Only mild BNP elevation with no clinical evidence of CHF and no chest pain or other true anginal type symptoms. Qualifiers: Syncope type: unspecified Qualified Code(s): R55 - Syncope and collapse (2) Elevated d-dimer SNOMED Code(s): 794132789 Code(s): R79.89 - OTHER SPECIFIED ABNORMAL FINDINGS OF BLOOD CHEMISTRY Status: Acute Priority: High Current Visit: Yes Onset Date: 09/13/18 Annotation/Comment:: Recent negative CTA of the chest as above. Venous Doppler studies of the lower extremities today were negative per preliminary verbal report as above. Various therapeutic were discussed with the patient and his , who agreed not to repeat CTA of the chest today. His did contact the oncology clinic at [place] with apparent possibility of d-dimer elevation secondary to his chemotherapy. 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 His exercise cardiac stress test was normal, although he did have some retention after exercise after this evaluation. His echocardiogram was normal as above. I did once again recommend that patient have a Cardiolite stress test once his treatment for his pancreatic cancer has ended and his condition has improved. (3) Hypoalbuminemia SNOMED Code(s): 173383498 Code(s): E88.09 - OTH DISORDERS OF PLASMA-PROTEIN METABOLISM, NEC Status: Chronic Priority: Medium Current Visit: Yes Onset Date: ~09/13/18 Annotation/Comment:: Patient did not wish to initiate Glucerna high protein supplements 2 times a day as snacks, which was recommended at hospital discharge in August 2018. Continue close observation by his regular providers. (4) Elevated LFTs SNOMED Code(s): 088639246, 628584665 Code(s): R94.5 - ABNORMAL RESULTS OF LIVER FUNCTION STUDIES Status: Chronic Priority: Medium Current Visit: Yes Annotation/Comment:: Known history of pancreatic cancer and dyslipidemia with additional recently diagnosed hepatic abscess. Previous ten-day course of Levaquin and Flagyl, which is being repeated at this time. Continue to observe closely by his oncologist, etc. (5) Hyperlipidemia SNOMED Code(s): 43098040 Code(s): E78.5 - HYPERLIPIDEMIA, UNSPECIFIED Status: Chronic Priority: Low Current Visit: Yes Annotation/Comment:: History of dyslipidemia as above with no current statin therapy. Continue to observe closely by his regular provider Qualifiers: Hyperlipidemia type: mixed hyperlipidemia Qualified Code(s): E78.2 - Mixed hyperlipidemia (6) Hypertension SNOMED Code(s): 93628876 Code(s): I10 - ESSENTIAL (PRIMARY) HYPERTENSION Status: Chronic Priority : Low Current Visit: Yes Annotation/Comment:: Initial hypotension with Blood pressures improved after IV lactated Ringer's bolus as above Qualifiers: Hypertension type: essential hypertension Qualified Code(s): I10 - Essential (primary) hypertension (7) Osteoarthritis SNOMED Code(s): 320007253 Code(s): M19.90 - UNSPECIFIED OSTEOARTHRITIS, UNSPECIFIED SITE Status: Chronic Priority: Medium Current Visit: Yes Annotation/Comment:: Stable by history with no significant fall, injury, etc. from syncopal episode on . Qualifiers: Osteoarthritis location: multiple joints Osteoarthritis type: primary Qualified Code(s): M15.0 - Primary generalized (osteo)arthritis (8) Pancreatic cancer SNOMED Code(s): 077680339 Code(s): C25.9 - MALIGNANT NEOPLASM OF PANCREAS, UNSPECIFIED Status: Chronic Priority: High Current Visit: No Onset Date: ~04/01/18 Annotation/Comment:: Currently under chemotherapy with only 5 treatments remaining. Emotional support provided. Qualifiers: Pancreatic malignancy location: head of pancreas Qualified Code(s): C25.0 - Malignant neoplasm of head of pancreas (9) Peptic reflux disease SNOMED Code(s): 830240963 Code(s): K21.9 - GASTRO-ESOPHAGEAL REFLUX DISEASE WITHOUT ESOPHAGITIS Status: Chronic Priority: Medium Current Visit: Yes Annotation/Comment:: Stable by history with high-dose IV Pepcid given as GI prophylaxis in the emergency room. No evidence of GI bleed, etc. despite high-dose IV Lovenox therapy. (10) Mixed anxiety depressive disorder SNOMED Code(s): 704563645 Code(s): F41.8 - OTHER SPECIFIED ANXIETY DISORDERS Status: Chronic Priority: Medium Current Visit: Yes Annotation/Comment:: Stable by history under current medical therapy. - Problem List Review Problem List Initiated/Reviewed/Updated: Yes - My Orders Last 24 Hours: My Active Orders 11/15/18 10:35 Cardiac Monitoring [RC] . DIRECTED EKG Documentation Completion [RC] ASDIRECTED Oxygen Therapy, ED [RC] PRN Peripheral IV Care [RC] . DIRECTED Pulse Oximetry [RC] CONTINUOUS Up With Assistance [RC] PFP Vital Signs [RC] PFP Chest 1V Frontal [CR] Stat Sodium Chloride 0.9% [Saline Flush] 10 ml FLUSH ASDIRECTED PRN Obtain Past Medical Record [OM.PC] Urgent Peripheral IV Insertion Adult [OM.PC] Stat Resuscitation Status Stat 11/15/18 11:20 Venous Doppler Lwr Ext Bi [US] Urgent 11/15/18 12:53 Communication Order [RC] ROUTINE 11/15/18 Breakfast Nothing per Oral Now Diet [DIET] - Assessment/Plan Last 24 Hours: My Active Orders 11/15/18 10:35 Cardiac Monitoring [RC] . DIRECTED EKG Documentation Completion [RC] ASDIRECTED Oxygen Therapy, ED [RC] PRN Peripheral IV Care [RC] . DIRECTED Pulse Oximetry [RC] CONTINUOUS Up With Assistance [RC] PFP Vital Signs [RC] PFP Chest 1V Frontal [CR] Stat Sodium Chloride 0.9% [Saline Flush] 10 ml FLUSH ASDIRECTED PRN Obtain Past Medical Record [OM.PC] Urgent Peripheral IV Insertion Adult [OM.PC] Stat Resuscitation Status Stat 11/15/18 11:20 Venous Doppler Lwr Ext Bi [US] Urgent 11/15/18 12:53 Communication Order [RC] ROUTINE 11/15/18 Breakfast Nothing per Oral Now Diet [DIET] Assessment:: As above Plan: As above. Extensive precautions were given to the patient and his , who are in agreement with the treatment plan. See Patient Instructions for further treatment and plan.
[2018-11-15] MEDS: Famotidine 20 MG/2 ML SDV IVPUSH ONE (10:55)
[2018-11-15] MEDS: Lactated Ringers 1,000 ML IV ONE (10:55)
[2018-11-15] MEDS: Sodium Chloride 0.9% 10 ML Syringe FLUSH PRN (10:56)
[2018-11-15 11:20] LABS: CHLORIDE,CL 104 mmol/L (98-107); SODIUM,NA 138 mmol/L (136-145)
[2018-11-15 12:52] VITALS: BP 136/88
== END 2018-11-15 13:05 | disposition home or self-care (01) ==
LOC: LL.ED 10:25
DX: K21.9 Gastro-esophageal reflux disease without esophagitis (principal); R79.1 Abnormal coagulation profile; E83.42 Hypomagnesemia; R79.89 Other specified abnormal findings of blood chemistry; I10 Essential (primary) hypertension; C25.0 Malignant neoplasm of head of pancreas; M15.0 Primary generalized (osteo)arthritis; E78.00 Pure hypercholesterolemia, unspecified; Z87.891 Personal history of nicotine dependence; Z79.899 Other long term (current) drug therapy
CPT/HCPCS: 36415; 71045; 80053; 82150; 82550; 82553; 83605; 83690; 83735; 83880; 84443; 84484; 84550; 85025; 85379; 85610; 85730; 93005; 93970; 96361; 96374; 99285-25; J3490; J7120